=== PATIENT | female | born 1955 | race Caucasian/White ===

== ENCOUNTER 2021-09-17 12:26 | Outpatient (CLI) | payer OTHER, SELFPAY ==
--- NOTE | ~2021-09-17 | MR_ITS ---
EXAMINATION: MR orbits face neck wo/w con DATE: 09/17/2021 13:21 INDICATION: Clonic hemifacial spasm. Left facial twitching. TECHNIQUE: Magnetic resonance imaging (MRI) of the orbits was performed without and with 13 mL MultiH ance intravenous contrast. COMPARISON: None. FINDINGS: The extraocular muscles and optic nerves are normal. The optic chiasm is normal. There are likely changes of ocular lens replacement surgeries. There is mucosal thickening in the paranasal sin uses. There are trace mastoid effusions. IMPRESSION: 1. No etiology for the patient's symptoms. Reviewed, dictated and finalized at location A.
--- NOTE | ~2021-09-17 | MR_ITS ---
EXAMINATION: MR brain/brain stem wo/w con DATE: 09/17/2021 13:21 INDICATION: Clonic hemifacial spasm. TECHNIQUE: Magnetic resonance imaging (MRI) of the brain and brainstem was performed without and with 13 mL MultiHance intravenous contrast. COMPARISON: None. FINDINGS: There are scattered areas of nonspecific increased T2-weighted signal intensity in the cere bral white matter, which is within normal limits for the patient's age. There is no intracranial hemo rrhage, acute infarction, or abnormal intracranial mass lesion. The ventricles are normal in size. Th ere is mild mucosal thickening in the paranasal sinuses. There are likely changes of ocular lens repl acement surgeries. There are trace mastoid effusions. IMPRESSION: 1. Normal aging brain. Reviewed, dictated and finalized at location A. IMPRESSION: 1. Normal aging brain.
== END 2021-09-17 12:27 ==
LOC: MICIMG 12:27
PROVIDERS: PCP Nurse Practitioner Family; Visit Provider Specialist
DX: G51.39 Clonic hemifacial spasm, unspecified (principal); R53.83 Other fatigue
CPT/HCPCS: 70543; 70553; A9577

== ENCOUNTER 2021-10-31 17:55 | Emergency (ER) | payer OTHER, SELFPAY ==
--- NOTE | ~2021-10-31 | XR_ITS ---
EXAMINATION: XR chest 2V DATE: 10/31/2021 18:26 INDICATION: Cough. TECHNIQUE: Frontal and lateral views of the chest were obtained. COMPARISON: Chest 2 views 04/26/2014, CT abdomen and pelvis 10/10/2013 FINDINGS: There is stable mild scarring at the lung apices. There are airspace opacities in right mid dle lobe and lingula. No pleural effusion or pneumothorax. The heart size is normal. There are change s of anterior fusion procedure in cervical spine. IMPRESSION: 1. Airspace opacities in right middle lobe and lingula, consistent with atelectasis versus pneumonia. Reviewed, dictated and finalized at location A. IMPRESSION: 1. Airspace opacities in right middle lobe and lingula, consistent with atelect asis versus pneumonia.
[2021-10-31 18:10] VITALS: BP 160/94; PULSE 106; RESP 18; TEMP 37.4; O2SAT 97
--- NOTE | 2021-10-31 18:11 | ED.FEMALEGU ---
HPI - Female Genitourinary General Chief complaint: Urogenital-Female Stated complaint: uti complaint,chest congestion Time Seen by Provider: 10/31/21 18:15 History of Present Illness HPI Narrative: Karen Newton is a 66-year-old female who [facility] with complaints of dysuria and also fever and chest tightness, shortness of breath. started last night. She has no fever on checking in and can walk and continue talking full sentences. She is just returned from a 10-day vacation in [place] and she is feeling worn down so she thought initially that the reason she felt poorly was because of the traveling She did not take the COVID-vaccine. She also has not taken flu vaccine because she believes that she was hospitalized in for fever due to the flu vaccine and that the vaccine actually gave her the flu Related Data Allergies Allergy/AdvReac Type Severity Reaction Status Date / Time codeine Allergy Unknown N/V, Unverified 10/31/21 18:25 LORTAB OK meperidine Allergy Unknown CAUSED Unverified 10/31/21 18:25 RESP ARREST W/MOTHER,N/V SISTER aspirin AdvReac Nausea and Verified 10/31/21 18:25 Vomiting FLU SHOT Allergy temp of 105 Uncoded 10/31/21 18:25 Review of Systems Review of Systems: CONSTITUTIONAL: Denies fever, chills, sweats. EYES: Denies visual changes, redness, discharge. ENT: Denies rhinorrhea, congestion, sore throat, otalgia. Complains of occasional shortness of breath CARDIOVASCULAR: Denies chest pain, palpitations, edema. RESPIRATORY: Denies dyspnea, wheezing, cough GASTROINTESTINAL: Denies abdominal pain, nausea, vomiting, diarrhea. GENITOURINARY: Has dysuria , hematuria, abnormal discharge SKIN: Denies rash or itching. NEUROLOGIC: Denies numbness, or focal weakness. PSYCHIATRIC: Denies anxiety or depression. [facility] Past Medical History Medical History (Updated 10/31/21 @ 18:41 by Amparo Cook CNP) Constipation Migraine Social History Social History (Updated 10/31/21 @ 18:30 by Amparo Cook CNP) Smoking status: Never smoker Alcohol intake: current Comments At time of signature, I agree with nursing past medical, surgical, social and family history. There is no relevant family history pertinent to the presenting complaint. Exam Narrative: GENERAL: This is a well-nourished, well-developed patient, in mild distress. HEAD: normocephalic, atraumatic. EYES: Sclera clear/white. Vision is grossly intact. EARS: External ears normal, auditory canals clear and without drainage, TMs normal without perforation. Hearing grossly intact. NOSE: External nose normal without nasal discharge, nares without redness, no rhinorrhea. THROAT: Mucous membranes moist, posterior pharynx mild erythema NECK: Neck supple, non-tender CARDIOVASCULAR: Tachycardia rate and rhythm without murmurs, gallops, or rubs. RESPIRATORY: Mesh to auscultation on right. Breath sounds equal bilaterally. No wheezes, rales, or rhonchi. GASTROINTESTINAL: Not done SKIN: warm, intact with no suspicious lesions or rash, good texture and turgor. NEURO: awake, alert, and oriented to person, place and time. There were no obvious focal neurologic abnormalities. Steady gait EXTREMITIES: Normal range of motion. BACK: Nontender without deformity Course Course Emergency Course: Patient comes to [facility] with complaints of dysuria and shortness of breath when walking. She is just returned from a 10-day vacation and thought she was tired initially from that UA is negative for leukocytes, blood, or nitrates but she states she has difficulty starting stream and emptying bladder COVID test is negative Chest x-ray shows airspace opacities in the right middle lobe and lingula, this is normal there is stable mild scarring of the lung apices, changes of anterior fusion procedure and cervical spine Patient started on Zithromax, albuterol inhaler for pneumonia and for treating dysuria Level of Care: [facility]
== END 2021-10-31 18:50 | disposition home or self-care (01) ==
PROVIDERS: Emergency Provider Nurse Practitioner; PCP Nurse Practitioner Family
DX: R30.0 Dysuria (principal); J18.9 Pneumonia, unspecified organism; Z20.822 Contact with and (suspected) exposure to COVID-19
CPT/HCPCS: 71046; 81003; 87426; 99213; C9803; G0463

== ENCOUNTER 2022-01-12 11:18 | Emergency (ER) | payer OTHER, SELFPAY ==
[2022-01-12 12:15] VITALS: BP 129/84; PULSE 82; RESP 18; TEMP 36.4; O2SAT 98
[2022-01-12 12:16] VITALS: BP 129/84; PULSE 82; RESP 18; TEMP 36.4; O2SAT 98
--- NOTE | 2022-01-12 12:32 | ED.BACK ---
HPI - Back Pain/Injury General Chief Complaint: Back Pain/Injury Stated Complaint: back pain Time Seen by Provider: 01/12/22 12:20 Source: patient Mode of arrival: ambulatory Limitations: no limitations History of Present Illness HPI Narrative: Ms. Joy is a 66-year-old female patient presenting to clinic today with complaints of mid and low back pain times 2-3 days she reports she was playing with her grandkids over the holiday on the floor and may have strained her back. She reports pain to the mid back and it is radiating into her low back. She reports that she has some sharp pain with certain movements and spasming. She denies any numbness or tingling in her groin or loss of bowel or bladder. Related Data Allergies Allergy/AdvReac Type Severity Reaction Status Date / Time codeine Allergy Unknown N/V, Verified 01/12/22 12:15 LORTAB OK meperidine Allergy Unknown CAUSED Verified 01/12/22 12:15 RESP ARREST W/MOTHER,N/V SISTER aspirin AdvReac Nausea and Verified 01/12/22 12:15 Vomiting FLU SHOT Allergy temp of 105 Uncoded 01/12/22 12:15 Review of Systems Review of Systems: Pertinent positives per HPI. Patient denies any fever, chills, rash, headache, visual changes, dizziness, cough, runny nose, sore throat, shortness of breath, chest pain, palpitations, nausea, vomiting, diarrhea, constipation, abdominal pain, or any urinary issues. PMFSH Past Medical History Medical History Constipation Migraine Social History Social History Smoking status: Never smoker Alcohol intake: current Comments At the time of my signature, I reviewed and agree with the nursing past medical, surgical, social, and family history. There is no relevant family history pertinent to the patient complaint. Exam Narrative: General: Well-developed, well nourished, in no apparent distress Head: Normocephalic, atraumatic. Cardio: Regular rate and rhythm, s1 and s2 normal, no murmur appreciated. Resp: Clear to auscultation bilaterally, no rhonchi, rales, wheezing or rubs. Musculoskeletal: No deformity, non-tender to palpation, straight leg test positive at 60? bilaterally, grossly normal range of motion, patellar reflexes 1+ over 4, bilateral lower muscle strength strong and equal, peripheral pulse strong, no edema, no cyanosis, normal gait and station Course Course Emergency Course: Portions of this record may have been created with voice recognition software. Level of Care: Express Care Visit Vital Signs Vital signs: Vital Signs Temperature 36.4 C L 01/12/22 12:15 Pulse Rate 82 01/12/22 12:15 Respiratory Rate 18 01/12/22 12:15 Blood Pressure 129/84 01/12/22 12:15 Pulse Oximetry 98 01/12/22 12:15 Oxygen Delivery Room Air 01/12/22 12:15 Temperature 36.4 C L 01/12/22 12:16 Pulse Rate 82 01/12/22 12:16 Respiratory Rate 18 01/12/22 12:16 Blood Pressure 129/84 01/12/22 12:16 Pulse Oximetry 98 01/12/22 12:16 Oxygen Delivery Room Air 01/12/22 12:16 Vital signs reviewed MDM - Back Pain/Injury MDM Narrative Medical decision making narrative: at the time of the patient appears to be in quite a bit of pain. She rates her pain 8/10 currently. Toradol 60 mg IM given in the clinic today for pain as well as prescriptions for naproxen and Flexeril was sent to the pharmacy. I suspect patient has a mid and low back strain. Supportive measures were discussed with the patient she voiced understanding of discharge instructions and agrees to treatment plan Differential Diagnosis Differential diagnosis: Likely lumbar radiculopathy, sciatica, strain of lumbar region, thoracic back pain and discitis Discharge Plan Discharge Clinical Impression: Strain of thoracic back region, Strain of lumbar region Patient Disposition: Home, Self-Care Co
[2022-01-12] MEDS: KETOROLAC (*BKC) 60 MG/2 ML VIAL IM (12:40)
== END 2022-01-12 12:50 | disposition home or self-care (01) ==
PROVIDERS: Emergency Provider Nurse Practitioner Family; PCP Nurse Practitioner Family
DX: S29.012A Strain of muscle and tendon of back wall of thorax, initial encounter (principal); S39.012A Strain of muscle, fascia and tendon of lower back, initial encounter; X50.0XXA Overexertion from strenuous movement or load, initial encounter
CPT/HCPCS: 96372; 99213; G0463; J1885

== ENCOUNTER → 2022-01-15 12:22 | Outpatient (CLI) | payer OTHER, SELFPAY ==
--- NOTE | ~2022-01-15 | XR_ITS ---
XR lumbar spine 2-3V DATE: 01/15/2022 12:43 INDICATION: Low back pain TECHNIQUE: AP, lateral, coned lateral lumbosacral views COMPARISON: 10/10/2013 MRI lumbar spine FINDINGS: There is minimal levoscoliosis of the lumbar spine. Mild to moderate degenerative disc disease at L1-2, mild degenerative disc disease at L2-3, L3-4 and L4-5. No fracture or bone destruction or spondylolisthesis is evident. The lumbar and included lower thorac ic pedicles are intact. The sacroiliac joints are intact. IMPRESSION: Mild to moderate degenerative disc disease Minimal lumbar levoscoliosis Reviewed, dictated and finalized at location B. ARCH DEVELOPMENT MANAGER
--- NOTE | ~2022-01-15 | XR_ITS ---
XR thoracic spine 3V DATE: 01/15/2022 12:43 INDICATION: Thoracic back pain, lumbar back pain. TECHNIQUE: AP, lateral, swimmer views COMPARISON: None FINDINGS: Status post anterior and interbody surgical fusion at at C4-C6. There is minimal dextroscoliosis of the thoracolumbar spine. The thoracic pedicles are intact. There is degenerative change including prominent degenerative disc disease and spurring at T7-8 and m oderate degenerative t disc disease at T8-9. No fracture or dislocation or bone destruction. No paraspinal soft tissue thickening. IMPRESSION: Status post anterior surgical fusion at C4-C6 Minimal thoracolumbar dextroscoliosis Degenerative changes, greatest at T7-8 and T8-9 Reviewed, dictated and finalized at location B. H PRESS FEEDER
== END ==
PROVIDERS: PCP Nurse Practitioner Family; Visit Provider Nurse Practitioner Family
DX: M54.50 Low back pain, unspecified (principal); M51.36 Other intervertebral disc degeneration, lumbar region; M41.86 Other forms of scoliosis, lumbar region; Z98.1 Arthrodesis status; M41.85 Other forms of scoliosis, thoracolumbar region
CPT/HCPCS: 72072; 72100

== ENCOUNTER 2022-03-17 08:00 | Outpatient (RCR) | payer OTHER, SELFPAY ==
--- NOTE | 2022-02-11 14:41 | PTOPEVAL1 ---
Assessment and note entered by Maria Elena Caballero, PT Evaluation Information Assessment Status Evaluation Diagnosis thoracic and lumbar pain Onset Jan 09, 2022 Subjective Information twisted back, when playing with grandchildren-- picking them up and twisted back; next day, could not hardly walk; pain has improved, but still there; has moved from mid back, to R lower back and into R side of hip; is not able to lift anything- guarded and protect her back, walk differently; problems moving R leg; up to a year ago, was working out for fitness, now taking care of my dad and not working out; Reported Pain Level Pain Score Self Report Additional Pain Score Comments thoracic and lumbar spine-R lower lumbar, radicular into lateral R hip; pain range of 3-10/ 10; self assessment functional score of 48% limitation; some tingling and numbness over R sacrum, tightness; increase pain with sitting 30-45 min; lifting, quick turns; walking/standing 30-40 min; decrease pain with biofreeze, massage blanket with heat; awaken with back pain during sleep 4-5x/ night; stated multiple times--do not want to move wrong and hurt back more; something is wrong with my back; Assessment PT Clinical Summary Karen has the diagnosis of thoracic & lumbar pain. She reports onset after playing with her grandkids, lifting them. Pain started in her mid and low back, now lower into her R side and around to R hip. Sitting, walking, sleeping and activity level is decreased due to pain. Self assessment Oswestry score of 48% limitation in activity level. Her job is sitting and office work. With the evaluation, she has poor standing position of her trunk and back--wt shifted to L LE R trunk and shoulder forward rotation and R hip elevated. With movement testing-she is very guarded with movement of her trunk and hips, pain is increased with most motions. There are spasms and tenderness over entire thoracic-lumbar area, with R lumbar the most painful. Skilled PT services are indicated for modalities to decrease pain and spasms, therapeutic exercises to increase flexibilit
--- NOTE | 2022-03-17 08:34 | PTOPDC ---
Assessment and note entered by Maria Elena Caballero, PT Evaluation Information Assessment Status Discharge Diagnosis thoracic and lumbar pain Onset Jan 09, 2022 Subjective Information Karen reports: back is better, still tight but not pain; doing exercises at home without any problems; ready to finish up with therapy; going to try to get a massage every week from my friend; tolerances: sitting is not limited; walking/ standing without limit due to pain; sleeping without awakening due to pain; no pain in R hip, but tight sometimes; Reported Pain Level Pain Score Self Report Additional Pain Score Comments no pain but tightness in back; back to her usual routine and no limitations; is careful with lifting and moving to not hurt her back again; reinforced heat, stretching as ways to manage her back tightness--she understands; Assessment PT Clinical Summary Ms. Newton has received 4 PT sessions. Compared to the initial evaluation--she has improved in all areas: Self assessment Oswestry score is 0% limitation in activity; walking, standing, sitting tolerances are not limited due to pain; does not have any pain with standing trunk or supine hip motions; increased trunk and hip strength; Education has been completed for HEP and body mechanics with position and lifting activity. The goals were achieved. Discharge PT services. Plan of Care PT Services Indicated No
== END 2022-04-29 09:28 | disposition home or self-care (01) ==
LOC: ANHPT 08:00
PROVIDERS: PCP Nurse Practitioner Family; Visit Provider Nurse Practitioner Family
DX: M54.6 Pain in thoracic spine (principal); M54.50 Low back pain, unspecified
CPT/HCPCS: 97110; 97140; 97161; 97530

== ENCOUNTER 2023-01-22 00:26 | Day surgery (SDC) | payer OTHER, SELFPAY ==
[2023-01-06 12:21] VITALS: BMI 25.0
--- NOTE | 2023-01-20 09:53 | SUR.PREOP ---
Patient called regarding upcoming procedure. Reviewed preop instructions, appointment times, and procedure prep.
--- NOTE | 2023-01-21 17:52 | PM.HPGS ---
History of Present Illness History of Present Illness Consent: Risks, benefits, and alternatives have been discussed and questions answered. Patient agrees to proceed with procedure. Chief complaint: neoplasm screening Narrative: Geena Newton is a 67 year old female referred for colon cancer screening. 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 Colon cancer screening Constipation Elevated fasting glucose Encounter to establish care Hyperlipidemia Lumbar back pain Migraine Postmenopausal Screening for osteoporosis Spasm Thoracic back pain Tobacco abuse Surgical History Surgical History Hx of cataract surgery Hx of neck surgery Family History Family History Father Patient's father is in good health Mother Family history of malignant neoplasm Patient's mother is , Onset Age: 64 Social History Social History Smoking status: Current every day smoker Tobacco type: cigarettes Alcohol intake: current Drinks per week: 2 Alcohol use details: occasionally Substance use: never Substance use type: does not use Lack of Transportation: No Lack of Food: Never True Current Housing: I Have Housing Concerned About Future Housing: No Difficulty Paying Gas/Electric Bills: No Difficulty Paying for Meds: No Currently Unemployed: No Education: High School Diploma/GED Difficulty w/ Childcare or Family Care: No Living arrangements: alone Spiritual care concerns: No Meds Home Medications and Allergies Home Medications Medication Instructions Recorded Confirmed Type multivitamin 1 tablet PO DAILY 10/12/22 01/22/23 History Allergies Allergy/AdvReac Type Severity Reaction Status Date / Time codeine Allergy Unknown N/V, Verified 01/22/23 10:31 LORTAB OK meperidine Allergy Unknown CAUSED Verified 01/22/23 10:31 RESP ARREST W/MOTHER,N/V SISTER FLU SHOT Allergy temp of 105 Uncoded 01/22/23 10:31 Exam Const: General: alert Orientation/consciousness: patient oriented x3 Resp: Auscultation: clear to auscultation bilaterally Cardio: Rate: regular rate Rhythm: regular rhythm GI: GI Palp: Yes Soft to palpation and No Tenderness to palpation present (GI) Neuro: General: patient oriented x3 Assessment and Plan Assessment and plan (1) Colon cancer screening: Code(s): Z12.11 - Encounter for screening for malignant neoplasm of colon Status: Acute Assessment and Plan: Colonoscopy with possible biopsy or polypectomy or cautery or injection of substances.
[2023-01-22 10:33] VITALS: BP 145/88; PULSE 80; RESP 16; TEMP 36.1; O2SAT 98
[2023-01-22] MEDS: LACTATED RINGERS 1,000 ML 150 ML IV CONT (10:46)
--- NOTE | 2023-01-22 11:04 | WPDANESEPPF ---
Anes - Initial Pre Proc Eval Procedure: Operation Date: 01/22/23 11:30 Proposed Procedures p Screening Colonoscopy - Abran Ernandez MD Date/Time: 01/22/23 11:04 Surgeon: Abran Ernandez MD Pre Op Diagnosis: neoplasm screening Patient Data Age: 67 Gender: F Height: 1.63 m Weight: 65.8 kg Last Vital Signs Temp 96.9 F L 01/22/23 10:33 Pulse 80 01/22/23 10:33 Resp 16 01/22/23 10:33 BP 145/88 H 01/22/23 10:33 Pulse Ox 98 01/22/23 10:33 O2 Del Method Room Air 01/22/23 10:33 Allergies Allergy/AdvReac Type Severity Reaction Status Date / Time codeine Allergy Unknown N/V, Verified 01/22/23 10:31 LORTAB OK meperidine Allergy Unknown CAUSED Verified 01/22/23 10:31 RESP ARREST W/MOTHER,N/V SISTER FLU SHOT Allergy temp of 105 Uncoded 01/22/23 10:31 Home Medications Medication Instructions Recorded Confirmed Type multivitamin 1 tablet PO DAILY 10/12/22 01/22/23 History Patient hx anesthesia problems: none Family hx anesthesia problems: none Results Review: All pre-operative results and documents have been reviewed as part of the pre-operative evaluation. 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 Colon cancer screening Constipation Elevated fasting glucose Encounter to establish care Hyperlipidemia Lumbar back pain Migraine Postmenopausal Screening for osteoporosis Spasm Thoracic back pain Tobacco abuse Surgical History Surgical History Hx of cataract surgery Hx of neck surgery Family History Family History Father Patient's father is in good health Mother Family history of malignant neoplasm Patient's mother is , Onset Age: 64 Social History Social History Smoking status: Current every day smoker Tobacco type: cigarettes Alcohol intake: current Drinks per week: 2 Alcohol use details: occasionally Substance use: never Substance use type: does not use Lack of Transportation: No Lack of Food: Never True Current Housing: I Have Housing Concerned About Future Housing: No Difficulty Paying Gas/Electric Bills: No Difficulty Paying for Meds: No Currently Unemployed: No Education: High School Diploma/GED Difficulty w/ Childcare or Family Care: No Living arrangements: alone Spiritual care concerns: No Anes - Eval Final PreProcedure Day of Procedure 01/22/23 11:04 Patient weight: normal Heart: regular rate and rhythm Lungs: clear to auscultation Airway: Mallampati scale class II Neurological: alert and oriented Last oral intake: >/= 8 hours ASA classification: II Emergent: no Anesthetic plan: proceed Anesthesia type and monitoring: general GIVS and standard monitoring Results Review: All pre-operative results and documents have been reviewed as part of the pre-operative evaluation. Informed Consent: The patient's anesthetic plan and its attendant risks and benefits were discussed with the patient/family/POA. Questions were solicited and answers provided to the satisfaction of the patient/family/POA.
[2023-01-22] MEDS: SIMETHICONE ORAL SUSPENSION 20 MG/0.3 ML 30 ML BOTTLE 0.6 ML IRRIGATION (11:15)
[2023-01-22 11:21] VITALS: BP 107/67; PULSE 85; RESP 18; O2SAT 98
[2023-01-22 11:31] VITALS: BP 118/87; PULSE 80; RESP 17; O2SAT 97
[2023-01-22 11:41] VITALS: BP 131/92; PULSE 84; RESP 21; O2SAT 98
== END 2023-01-22 11:45 | disposition home or self-care (01) ==
PROVIDERS: PCP Nurse Practitioner Family; Visit Provider Internal Medicine Gastroenterology
PROC: 0DJD8ZZ Inspection of Lower Intestinal Tract, Via Natural or Artificial Opening Endoscopic (ICD-10-PCS; CPT 45378; principal; 2023-01-22 11:30)
DX: Z12.11 Encounter for screening for malignant neoplasm of colon (principal); D12.5 Benign neoplasm of sigmoid colon; K64.8 Other hemorrhoids; F17.210 Nicotine dependence, cigarettes, uncomplicated
CPT/HCPCS: 45385; 88305; J2704; J7120

== ENCOUNTER 2023-04-08 12:08 | Emergency (ER) | payer OTHER, SELFPAY ==
[2023-04-08 12:23] VITALS: BP 140/75; PULSE 76; RESP 18; TEMP 36.6; O2SAT 97
--- NOTE | 2023-04-08 12:23 | ED.BACK ---
HPI - Back Pain/Injury General Chief Complaint: Urogenital-Female Stated Complaint: back pain Time Seen by Provider: 04/08/23 12:23 Source: patient Mode of arrival: ambulatory Limitations: no limitations History of Present Illness HPI Narrative: Patient is a 68-year-old female that presents with low back pain that started Wednesday after vacuuming but has increasingly worsened since. Patient reports today she is having increased numbness to buttocks/rectal area and tingling sensation in extremities. Denies any loss of bowel or bladder. Is still able to ambulate unassisted. Does have history of lumbar strain and sciatica but states this feels differently. Patient has taken Aleve today with no relief of symptoms. Denies any fever, chills, n/v/d. Related Data Home Medications Medication Instructions Recorded Confirmed multivitamin 1 tablet PO DAILY 10/12/22 04/08/23 Allergies Allergy/AdvReac Type Severity Reaction Status Date / Time codeine Allergy Unknown N/V, Verified 04/08/23 12:40 LORTAB OK meperidine Allergy Unknown CAUSED Verified 04/08/23 12:40 RESP ARREST W/MOTHER,N/V SISTER FLU SHOT Allergy temp of 105 Uncoded 04/08/23 12:40 Review of Systems Review of Systems: All systems reviewed & are unremarkable except as noted in HPI and below Constitutional: Constitutional: Denies body ache(s), Denies chills, Denies fatigue, Denies fever(s), Denies headache(s), Denies malaise and Denies weakness Eyes: Eyes: Denies blurry vision, Denies irritation and Denies loss of vision ENT: Denies otalgia, Denies headache(s), Denies nasal discharge, Denies sinus pain and Denies sore throat Cardiovascular: Cardiovascular: Denies chest pain, Denies irregular heart rhythm and Denies dyspnea Respiratory: Respiratory: Denies dyspnea Gastrointestinal: Gastrointestinal: Denies abdominal pain, Denies melena, Denies hematochezia, Denies diarrhea, Denies nausea and Denies vomiting Musculoskeletal: Musculoskeletal: Reports back pain, Denies myalgias, Denies arthralgias, Reports numbness and Reports tingling Integumentary/Breasts: Skin/Breast: Denies pruritus and Denies rash Neurologic: Denies headache(s), Denies loss of vision and Denies weakness Psychiatric: Psychiatric: Reports no additional psychiatric complaints Endocrine: Endocrine: Denies fatigue [facility] Past Medical History Medical History B12 deficiency BMI 22.0-22.9, adult Breast cancer screening Cervicalgia 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 Colon cancer screening Constipation Elevated fasting glucose Encounter to establish care Hyperlipidemia Lumbar back pain Migraine Postmenopausal Screening for osteoporosis Spasm Thoracic back pain Tobacco abuse Surgical History Surgical History Hx of cataract surgery Hx of neck surgery Family History Family History Father Patient's father is in good health Mother Family history of malignant neoplasm Patient's mother is , Onset Age: 64 Social History Social History Smoking status: Current every day smoker Tobacco type: cigarettes Alcohol intake: current Drinks per week: 2 Alcohol use details: occasionally Substance use: never Substance use type: does not use Lack of Transportation: No Lack of Food: Never True Current Housing: I Have Housing Concerned About Future Housing: No Difficulty Paying Gas/Electric Bills: No Difficulty Paying for Meds: No Currently Unemployed: No Education: High School Diploma/GED Difficulty w/ Childcare or Family Care: No Living arrangements: alone Spiritual care concerns: No Comments At time of signature, agree with nursing past medical, surgical, social and family history. T
== END 2023-04-08 12:45 | disposition short-term general hospital (02) ==
PROVIDERS: Emergency Provider Nurse Practitioner Family; PCP Nurse Practitioner Family
DX: M54.50 Low back pain, unspecified (principal); R20.0 Anesthesia of skin; E78.5 Hyperlipidemia, unspecified; F17.210 Nicotine dependence, cigarettes, uncomplicated
CPT/HCPCS: 99212; G0463

== ENCOUNTER 2023-04-08 13:09 | Emergency (ER) | payer OTHER, SELFPAY ==
--- NOTE | ~2023-04-08 | CT_ITS ---
EXAMINATION: CT lumbar spine wo con DATE: 04/08/2023 14:35 INDICATION: Lower back pain TECHNIQUE: Computed tomography (CT) of the lumbar spine was performed without intravenous contrast. A utomated exposure control and iterative reconstruction technique were employed. The dose-length produ ct was 297.81 mGy-cm. COMPARISON: Lumbar spine radiographs dated 01/15/2022 FINDINGS: 7 degrees lumbar levocurvature. Sagittal alignment is normal. Vertebral body heights are normal. No f ractures. There are Schmorl's nodes at both sides of the T11-T12 through L1-L2 disc spaces. There is mild disc height loss at T11-T12, L1-L2 and L4-L5. Paravertebral soft tissues are unremarkable. The f ollowing disc levels are specifically discussed: T11-T12: Disc is mildly bulging. There is mild right and minimal left facet joint osteoarthritis. The re is no neural foraminal stenosis. There is mild central canal stenosis. T12-L1: Very small central disc protrusion. There is mild bilateral facet joint osteoarthritis. There is no neural foraminal stenosis. There is no central canal stenosis. L1-L2: Disc is minimally bulging. There is mild bilateral facet joint osteoarthritis. There is no pola ral foraminal stenosis. There is no central canal stenosis. L2-L3: Disc is bulging. There is mild bilateral facet joint osteoarthritis. There is mild bilateral n eural foraminal stenosis. There is mild central canal stenosis. L3-L4: Disc is bulging. There is mild bilateral facet joint osteoarthritis. There is mild bilateral n eural foraminal stenosis. There is mild central canal stenosis. L4-L5: Disc is bulging. There is mild right and mild to moderate left facet joint osteoarthritis. The re is mild right and mild to moderate left neural foraminal stenosis. There is mild central canal stefano nosis. L5-S1: Disc is bulging. There is mild bilateral facet joint osteoarthritis. There is mild left and mi nimal right neural foraminal stenosis. There is minimal central canal stenosis. IMPRESSION: 1. 7 degrees lumbar levocurvature with mild lumbar and lower thoracic spondylosis. Reviewed, dictated and finalized at location A. [facility] IMPRESSION: 1. 7 degrees lumbar levocurvature with mild lumbar and lower thoracic spondylos is.
[2023-04-08 13:12] VITALS: BP 142/119; PULSE 72; RESP 20; TEMP 36.2; O2SAT 99
--- NOTE | 2023-04-08 14:15 | ED.BACK ---
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 Patient denies bowel dysfunction, bladder dysfunction, altered sensation, focal weakness, or saddle numbness, patient drove herself to the emergency room Patient had history of lower back pain, chronic, had physical therapy January 2023. Related Data Home Medications Medication Instructions Recorded Confirmed multivitamin 1 tablet PO DAILY 10/12/22 04/08/23 Allergies Allergy/AdvReac Type Severity Reaction Status Date / Time codeine Allergy Unknown N/V, Verified 04/08/23 12:40 LORTAB OK meperidine Allergy Unknown CAUSED Verified 04/08/23 12:40 RESP ARREST W/MOTHER,N/V SISTER FLU SHOT Allergy temp of 105 Uncoded 04/08/23 12:40 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 Colon cancer screening Constipation Elevated fasting glucose Encounter to establish care Hyperlipidemia Lumbar back pain Migraine Postmenopausal Screening for osteoporosis Spasm Thoracic back pain Tobacco abuse Surgical History Surgical History Hx of cataract surgery Hx of neck surgery Family History Family History Father Patient's father is in good health Mother Family history of malignant neoplasm Patient's mother is , Onset Age: 64 Social History Social History Smoking status: Current every day smoker Tobacco type: cigarettes Alcohol intake: current Drinks per week: 2 Alcohol use details: occasionally Substance use: never Substance use type: does not use Lack of Transportation: No Lack of Food: Never True Current Housing: I Have Housing Concerned About Future Housing: No Difficulty Paying Gas/Electric Bills: No Difficulty Paying for Meds: No Currently Unemployed: No Education: High School Diploma/GED Difficulty w/ Childcare or Family Care: No Living arrangements: alone Spiritual care concerns: No Exam Narrative: General appearance: Well-developed, well-nourished Skin: Normal color Head: Normocephalic, nontraumatic Eyes: Clear conjunctiva ENT: Oropharynx normal, ears normal, nose normal Neck: Supple, nontender Chest and respiratory: Airway patent, no respiratory distress, no accessory muscle use Heart: Regular rate/rhythm Abdomen: Soft, nontender, no organomegaly, quiet bowel sounds Vascular: Normal peripheral pulses, normal capillary refill. Musculoskeletal: Diffuse tenderness spinous and paraspinous muscle and across lumbar area no bruises, no swelling or rash. Neurologic: Alert and oriented ?3, [employer] is normal as tested, no gross motor deficit, negative leg straight raising test bilaterally Course Vital Signs Vital signs: Vital Signs Temperature 36.2 C L 04/08/23 13:12 Pulse Rate 72 04/08/23 13:12 Respiratory Rate 20 04/08/23 13:12 Blood Pressure 142/119 H 04/08/23 13:12 Pulse Oximetry 99 04/08/23 13:12 Oxy
[2023-04-08] MEDS: KETOROLAC (*BKC) 60 MG/2 ML VIAL IM (14:42)
[2023-04-08 15:42] VITALS: BP 132/89; PULSE 76; RESP 15; O2SAT 100
== END 2023-04-08 15:43 | disposition home or self-care (01) ==
PROVIDERS: Emergency Provider Emergency Medicine; PCP Nurse Practitioner Family
DX: S39.012A Strain of muscle, fascia and tendon of lower back, initial encounter (principal); E53.8 Deficiency of other specified B group vitamins; E78.5 Hyperlipidemia, unspecified; F17.210 Nicotine dependence, cigarettes, uncomplicated; Z98.49 Cataract extraction status, unspecified eye; X50.9XXA Other and unspecified overexertion or strenuous movements or postures, initial encounter; Y93.E9 Activity, other interior property and clothing maintenance
CPT/HCPCS: 72131; 96372; 99284; J1885

== ENCOUNTER 2023-07-26 00:28 | Day surgery (SDC) | payer OTHER, SELFPAY ==
--- NOTE | 2023-07-16 15:26 | PC.NURSE ---
Report to the Outpatient Waiting Room, entrance under the green pavilion located off [facility], at time _1000 on date _07/26/23 . Planned Procedure Time: __1200 . Time changes happen often and if your time is changed the preop area will call you the afternoon before. - You and your visitor will be asked to self-screen and do not enter if you have any COVID symptoms. - A mask is optional within the hospital at this time. REGULAR DIET DAY PRIOR TO SURGERY-NOTHING TO EAT OR DRINK AFTER MIDNIGHT BOWEL PREP PER DR PATINO Take the following medications with a SIP of water the morning of surgery: ____NONE DO NOT STOP ANY OF YOUR OTHER PRESCRIPTION MEDICATIONS PRIOR TO SURGERY ?EXCEPT THE FOLLOWING Medications to discontinue per physician ALL VITAMINS 3 DAYS PRE OP .LAST DOSE 07/22/23 Please no make-up, nail namibian, hairspray, perfume, deodorant, or body powder the day of surgery. No jewelry (including any body piercings) or valuables the day of surgery, leave them at home. Please take a shower or bath the night before, or the morning of, surgery with an antibacterial soap. Wear comfortable, loose fitting clothing. Children are encouraged to wear pajamas. - Jewelry must be removed prior to entering the operating room. Rings and piercings that are not removed may be cut off. - The hospital will not accept responsibility for valuables. - Please leave all valuables, including medications, at home the day of surgery. If you are going home after surgery, a licensed front loader residential driver must drive you home. - NO public transportation without another adult if you receive anesthesia. - We recommend that an adult stay with you for 24 hours following discharge. - We also recommend that you do not drive, make important decision, drink alcoholic beverages, or take any drugs that were not prescribed by your health care provider for at least 24 hours after your discharge time. Follow any additional instructions given to you from your surgeon. If you or anyone in your household have experienced Covid symptoms in the past week, please notify your surgeon or the nurse liaison at the phone number below for possible testing. Telephone instructions given to ____PATIENT and asked if any additional questions and then verbalized understanding. Patient advised to call surgeon office or pre surgery nurse liaison [phone] if any additional questions.
[2023-07-16 15:36] VITALS: BMI 24.0
[2023-07-26] VITALS (8 sets, daily range): BP systolic 104–147; BP diastolic 59–102; PULSE 69–90; RESP 10–20; TEMP 36.1–36.2; O2SAT 95–100
[2023-07-26] MEDS: ACETAMINOPHEN 500 MG TABLET 1000 MG PO (10:45)
[2023-07-26] MEDS: LACTATED RINGERS 1,000 ML 30 ML IV CONT (10:45)
[2023-07-26] MEDS: KETOROLAC 15 MG/ML VIAL (*BKC) IV PUSH ×2 (10:45→13:08)
--- NOTE | 2023-07-26 11:47 | WPDANESEPPF ---
Anes - Initial Pre Proc Eval Procedure: Operation Date: 07/26/23 12:00 Proposed Procedures p Anorectal Examination Under Anesthesia, Excisional Hemorrhoidectomy - Orestes Mcclain MD Date/Time: 07/26/23 11:47 Surgeon: Orestes Mcclain MD Pre Op Diagnosis: Grade III Internal Hemorrhoids Patient Data Age: 68 Gender: F Height: 1.63 m Weight: 63.5 kg Last Vital Signs Temp 97.2 F L 07/26/23 10:03 Pulse 69 07/26/23 10:03 Resp 14 07/26/23 10:03 BP 123/59 L 07/26/23 10:03 Pulse Ox 99 07/26/23 10:03 O2 Del Method Room Air 07/26/23 10:03 Allergies Allergy/AdvReac Type Severity Reaction Status Date / Time codeine Allergy Unknown N/V, Verified 07/26/23 11:05 LORTAB OK meperidine Allergy Unknown CAUSED Verified 07/26/23 11:05 RESP ARREST W/MOTHER,N/V SISTER FLU SHOT Allergy temp of 105 Uncoded 07/26/23 11:05 Home Medications Medication Instructions Recorded Confirmed Type multivitamin 1 tablet PO DAILY 10/12/22 07/16/23 History Patient hx anesthesia problems: none Family hx anesthesia problems: none Results Review: All pre-operative results and documents have been reviewed as part of the pre-operative evaluation. 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 Colon cancer screening Constipation Elevated fasting glucose Encounter to establish care Hyperlipidemia Internal hemorrhoids Lumbar back pain Migraine Postmenopausal Screening for osteoporosis Spasm Thoracic back pain Tobacco abuse Surgical History Surgical History H/O: hysterectomy History of appendectomy Hx of cataract surgery Hx of neck surgery Family History Family History Father Patient's father is in good health Mother Family history of malignant neoplasm Patient's mother is , Onset Age: 64 Social History Social History Years smoked: 30 Smoking status: Current every day smoker Tobacco type: cigarettes Alcohol intake: current Drinks per week: 1 Alcohol use details: occasionally Substance use: never Substance use type: does not use Lack of Transportation: No Lack of Food: Never True Current Housing: I Have Housing Concerned About Future Housing: No Difficulty Paying Gas/Electric Bills: No Difficulty Paying for Meds: No Currently Unemployed: No Education: High School Diploma/GED Difficulty w/ Childcare or Family Care: No Living arrangements: alone Spiritual care concerns: No Anes - Eval Final PreProcedure Day of Procedure 07/26/23 11:47 Patient weight: overweight Heart: regular rate and rhythm Lungs: clear to auscultation Airway: Mallampati scale class II Neurological: alert and oriented Last oral intake: >/= 8 hours ASA classification: II Emergent: no Anesthetic plan: proceed Anesthesia type and monitoring: general ETT and standard monitoring Results Review: All pre-operative results and documents have been reviewed as part of the pre-operative evaluation. Pt smokes occ, socially, seems to be several days/week. 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 Informed Consent: The patient's anesthetic plan and its attendant risks and benefits were discussed with the patient/family/POA. Questions were solicited and answers provided to the satisfaction of the patient/family/POA.
--- NOTE | 2023-07-26 12:04 | PM.IMHP ---
H&P: HPI History of Present Illness Date/Time: 07/26/23 12:04 Chief Complaint: Symptomatic hemorrhoids. Narrative: Ms. Newton presents to the office at the request of Dr. Ernandez for evaluation of symptomatic hemorrhoids. Has a approximately 2-3 month history of rectal pain and drainage. Notices blood on the toilet paper after BMs. Has increased pain with prolonged sitting. She states it feels like she's sitting on marbles. No history of constipation or change in bowel habits, and admits to having a BM every morning. First colonoscopy was 8 or 9 years ago, which she recalls was negative for polyps. Recent colonoscopy by Dr. Ernandez in 01/2023 showed a polyp in the sigmoid colon and internal hemorrhoids. Biopsy of the polyp was taken showed pathology confirmed it to be a tubular adenoma. Review of Systems Review of Systems: The remainder of the review of systems to include constitutional, HEENT, cardiovascular, respiratory, GI, , integumentary, musculoskeletal, endocrine, immunologic, hematologic, psychiatric, and neurologic are all negative except for which is mentioned above in the HPI. 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 Colon cancer screening Constipation Elevated fasting glucose Encounter to establish care Hyperlipidemia Internal hemorrhoids Lumbar back pain Migraine Postmenopausal Screening for osteoporosis Spasm Thoracic back pain Tobacco abuse Surgical History Surgical History H/O: hysterectomy History of appendectomy Hx of cataract surgery Hx of neck surgery Family History Family History Father Patient's father is in good health Mother Family history of malignant neoplasm Patient's mother is , Onset Age: 64 Social History Social History Years smoked: 30 Smoking status: Current every day smoker Tobacco type: cigarettes Alcohol intake: current Drinks per week: 1 Alcohol use details: occasionally Substance use: never Substance use type: does not use Lack of Transportation: No Lack of Food: Never True Current Housing: I Have Housing Concerned About Future Housing: No Difficulty Paying Gas/Electric Bills: No Difficulty Paying for Meds: No Currently Unemployed: No Education: High School Diploma/GED Difficulty w/ Childcare or Family Care: No Living arrangements: alone Spiritual care concerns: No Meds Home Medications and Allergies Home Medications Medication Instructions Recorded Confirmed Type multivitamin 1 tablet PO DAILY 10/12/22 07/16/23 History Allergies Allergy/AdvReac Type Severity Reaction Status Date / Time codeine Allergy Unknown N/V, Verified 07/26/23 11:05 LORTAB OK meperidine Allergy Unknown CAUSED Verified 07/26/23 11:05 RESP ARREST W/MOTHER,N/V SISTER FLU SHOT Allergy temp of 105 Uncoded 07/26/23 11:05 Vital Signs Vital Signs - 24 hr 07/26/23 10:03 Temperature 36.2 C L Pulse Rate 69 Respiratory Rate 14 Blood Pressure 123/59 L Pulse Oximetry 99 Oxygen Delivery Room Air Exam Const: General: comfortable and no acute distress HENMT: Face/Nose/Sinus: Normal nares present Mouth: Yes moist mucous membranes Eyes: General: appearance normal, both eyes and all related structures Sclera: sclerae normal Pupils: Equal, round and reactive pupils present EOM: EOMs intact bilaterally Neck: Neck: supple and no JVD Resp: Effort & Inspection: normal respiratory effort Auscultation: clear to auscultation bilaterally Cardio: Rate: regular rate Rhythm: regular rhythm GI: GI Palp: Yes Soft to palpation, No Firmness to palpation present (
--- NOTE | 2023-07-26 12:09 | WPDHPUPDATE1 ---
History and Physical Update Update Date/Time: 07/26/23 12:09 History and Physical has been reviewed, including an updated exam of the patient. There are NO changes in the patient's condition. Risks, benefits, and alternatives have been discussed and questions answered. Patient agrees to proceed with procedure.
[2023-07-26] MEDS: ceFAZolin 2 GM/D5W 50 ML 2 GM/50 ML BAG IVPB (12:16)
[2023-07-26] MEDS: BUPivacaine HCL 0.5% PF 30 ML VIAL 20 ML INFILTRATE (12:48)
[2023-07-26] MEDS: LIDO 1%/EPINEPHRINE 1:100,000 20 ML VIAL INFILTRATE (12:49)
[2023-07-26] MEDS: LIDOCAINE HCL 2% GEL UROJET 10 ML PKG MUCOUS MEM (13:11)
--- NOTE | 2023-07-26 13:47 | SUR.PHASEI ---
Simple mask removed at 1349
--- NOTE | 2023-07-26 19:55 | W.PM.PROC2 ---
Procedure Note - Detailed Date of Procedure 07/26/23 Pre-op Diagnosis Grade III Internal Hemorrhoids Post-op Diagnosis Same Procedure Performed Excisional hemorrhoidectomy x1 with banding of internal hemorrhoids x2. Surgeon Orestes Mcclain MD Anesthesia General Indications Patient is a 68-year-old female who has a large protruding grade 3 internal hemorrhoids in the right lateral side at the 4 o'clock position with the patient prone. She complains of having pain some bleeding from her hemorrhoids. She presents now for an excisional hemorrhoidectomy. Findings Patient had large grade 3 non ulcerated nonthrombosed hemorrhoid at the 4 o'clock position the right anterior side with the patient prone. She had 2 smaller internal hemorrhoids which were grade 2 at the left lateral side at the 7 o'clock and 10 o'clock positions. Description of Procedure After informed consent was obtained patient brought to the operating room where she was placed supine position on the gurney then turned in the prone hussein-knife position on operating table. The buttocks were then taped apart to expose the anal opening. There is then prepped and draped usual sterile fashion. A time-out was then performed correctly identifying the patient as well as procedure to be performed. I then proceeded to dilate the anal sphincters with a lubricated anal speculum. Once this was done I could easily see there was a very large non ulcerated and nonthrombosed internal hemorrhoid at the 4 o'clock position the right anterior side with the patient prone. There is also 2 smaller grade 2 internal hemorrhoids at the 7 o'clock and 10 o'clock positions on the left lateral side. First started excising the biggest hemorrhoid at the 4 o'clock position. An Allis clamp was placed at the apex of the hemorrhoid and then 1% lidocaine mixed with 0.5% Marcaine was injected underneath the hemorrhoid tissue but superficial to the internal sphincter muscles. I then placed 2-0 chromic suture at the apex of the hemorrhoid and incised the tissue on either side hemorrhoid a raegan configuration extending it out onto the perianal skin. I then utilized electrocautery to dissect in the incision until I reached the anal sphincters. Then I used Metzenbaum scissors to spread superficial to the internal anal sphincter muscle fibers and then completely excised out the hemorrhoidal tissue utilizing electrocautery. Great care was taken to make sure that no internal sphincter muscle was damaged. The hemorrhoid was then labeled as internal hemorrhoid 6 o'clock position. It was sent to pathology for examination. I then ran the 2-0 chromic suture placed previously in a locking fashion out to the anal verge. At this point I transition using a 3-0 Vicryl suture placed in a locking fashion to completely close the perianal skin portion of the incision. I then approached management of the 2 smaller 2nd degree internal hemorrhoids in the left lateral side. I felt that these could be treated with rubber-band ligation. Double rubber bands placed onto the ligating device and then with an Allis clamp I held the internal hemorrhoid tissue and then applied the rubber-band ligated over the clamp. This ligated the internal hemorrhoid tissue well. Was done in identical fashion both the 7:00 and 10:00 hemorrhoids. I then irrigated out the anal canal sterile saline solution. Hemostasis was good. I then placed a Gelfoam covered in 1% lidocaine jelly. Placed into the anal canal. I then cleaned the area and then placed a perianal block consisting of 1% lidocaine mixed with 0.5% Marcaine with some epinephrine. Bilateral pudendal nerve blocks were also placed. There is then cleaned and then fluffed 4x4 gauze ABD pad and disposable underwear was used for final dressing. The patient tolerated the procedure well no complications. All sponges, needles, and instrument counts were correct at the end procedure. EBL was _30__cc. The patient was awakened
== END 2023-07-26 14:52 | disposition home or self-care (01) ==
PROVIDERS: PCP Nurse Practitioner Family; Visit Provider Surgery
PROC: (CPT 46255; principal; 2023-07-26 12:00)
DX: K64.2 Third degree hemorrhoids (principal); F17.210 Nicotine dependence, cigarettes, uncomplicated
CPT/HCPCS: 46255; 88304; A9270; J0690; J1100; J1885; J2250; J2405; J2704; J3010; J7120

== ENCOUNTER 2023-09-07 11:04 | Outpatient (CLI) | payer OTHER, SELFPAY ==
--- NOTE | ~2023-09-07 | XR_ITS ---
. EXAMINATION: XR chest 2V 09/07/2023 10:31 INDICATION: Shortness of breath and cough PROCEDURE: 2 view chest COMPARISON: Comparison to multiple prior studies sequentially, with oldest reviewed study dated 09/2010. FINDINGS: The lungs are clear. The lungs are hyperinflated which is consistent with, but not diagnost ic of chronic obstructive pulmonary disease. The cardiomediastinal silhouette is within normal limit s. There are no pleural effusions. There is no pneumothorax suspected. IMPRESSION: 1: NO ACUTE CARDIOPULMONARY DISEASE. Reviewed, dictated and finalized at location B.
--- NOTE | 2023-09-07 10:36 | ECG_ITS ---
Test Date: 2023-09-07 10:54:24 Measurements Intervals [place] Rate: 73 P: -47 VA: 110 QRS: 45 QRSD: 74 T: 42 QT: 370 QTc: 408 Interpretive Statements ECTOPIC ATRIAL RHYTHM WITH SHORT VA INTERVAL CANNOT R/O SEPTAL INFARCT, AGE INDETERMINATE ABNORMAL ECG No previous ECG available for comparison Electronically Signed On 09-07-2023 10:57:41 CDT by Esteban Francisco D.O.
[2023-09-07 11:23] LABS: Basophils Absolute Auto 0.1 K/mm3 (0.0-0.1); Eosinophils Absolute Auto 0.1 K/mm3 (0-0.3); Eosinophils Percent Auto 1.4 % (0-4.4); Hematocrit 44.5 % (37.0-47.0); Hemoglobin 14.4 g/dL (12.0-15.0); Immature Granulocyte Absolute 0.02 K/mm3 (0.00-0.031); Immature Granulocyte Percent A 0.3 % (0-0.5); Lymphocytes Absolute Auto 2.05 K/mm3 (0.9-3.2); Lymphocytes Percent Auto 32.7 % (18.3-44.2); Mean Corpuscular HGB Conc 32.4 g/dl (32-36); Mean Corpuscular Volume 92.7 fl (80-100); Monocytes Absolute Auto 0.4 K/mm3 (0.1-0.6); Monocytes Percent Auto 6.4 % (2.6-8.5); Neutrophils Absolute Auto 3.6 K/mm3 (1.3-6.7); Neutrophils Percent Auto 58.2 % (45.5-73.1); Platelet Count Result 270 k/mm3 (150-375); Red Cell Distribution Width 12.6 % (11.5-14.5); White Blood Count 6.3 K/mm3 (4.5-10.0)
[2023-09-07 11:44] LABS: Alanine Aminotransferase 16 U/L (6-35); Albumin Level 4.8 g/dL (3.5-5.1); Alkaline Phosphatase 65 U/L (38-126); Anion Gap 8 mmol/L (4-12); Aspartate Amino Transferase 25 U/L (14-36); Bilirubin,Total 0.8 mg/dL (0.2-1.3); Blood Urea Nitrogen 11 mg/dL (7-17); Calcium 9.8 mg/dL (8.4-10.2); Carbon Dioxide 29 mmol/L (22-30); Chloride 103 mmol/L (98-107); Estimated Glomerular Filt Rate > 60; Glucose 100 mg/dL (65-110); Potassium 4.1 mmol/L (3.4-5.0); Sodium 140 mmol/L (137-145)
== END 2023-09-07 11:05 | disposition home or self-care (01) ==
PROVIDERS: PCP Nurse Practitioner Family; Visit Provider Nurse Practitioner Family
DX: R53.83 Other fatigue (principal); R94.31 Abnormal electrocardiogram [ECG] [EKG]
CPT/HCPCS: 36415; 71046; 80053; 84443; 85025; 93005

== ENCOUNTER 2023-09-29 13:06 | Outpatient (CLI) | payer OTHER, SELFPAY ==
--- NOTE | 2023-09-29 13:09 | ECHO_ITS ---
Patient Info Name: Geena Newton Age: 68 years : 1955 Gender: Female Ht: 65 in Wt: 140 lbs BSA: 1.71 m2 HR: 75 bpm BP: 154 / 91 mmHg Heart Rhythm: Sinus Rhythm Technical Quality: Good Exam Date: 09/29/2023 1:32 PM Exam Location: Echo Lab Patient Status: Outpatient Admit Date: 09/29/2023 Staff Ordering Physician: Concepcion Fuentes NP Cub Reporter: Jeff Jo RDCS Attending Provider: Concpecion Fuentes NP Exam Type: CA echo doppler color flow Study Info Indications - chest pain, unsp Complete two-dimensional, color flow and Doppler transthoracic echocardiogram is performed. Summary 1. Complete two-dimensional, color flow and Doppler transthoracic echocardiogram is performed. 2. Left ventricular chamber dimension is normal. 3. Left ventricular systolic function is normal, estimated at 60-65%. 4. The left ventricular diastolic function is normal. 5. E/e' 8 is minimally elevated. 6. There is trace aortic valve regurgitation. 7. There is trace mitral valve regurgitation. 8. There is trace tricuspid valve regurgitation. 9. No pulmonary hypertension, estimated pulmonary arterial systolic pressure is 25 mmHg. Left Ventricle E/e' 8 is minimally elevated. Left ventricular chamber dimension is normal. Left ventricular systolic function is normal, estimated at 60-65%. The left ventricular diastolic function is normal. Right Ventricle Right ventricular systolic function is normal and with normal TAPSE 2.9 cm. Right ventricular chamber dimension is normal. Left Atria Left atrial chamber dimension is normal. Right Atria Right atrial chamber dimension is normal. Aortic Valve The aortic valve is trileaflet. There is no aortic valve stenosis. There is trace aortic valve regurgitation. Pulmonic Valve There is no pulmonic regurgitation. Mitral Valve There is no mitral valve stenosis. There is trace mitral valve regurgitation. Tricuspid Valve There is trace tricuspid valve regurgitation. No pulmonary hypertension, estimated pulmonary arterial systolic pressure is 25 mmHg. Pericardium/Pleural There is no pericardial effusion. Inferior Vena Cava Normal inferior vena cava with >50% collapse upon inspiration consistent with normal right atrial pressure, 5 mmHg. Aorta The aortic root size at the sinus of Valsalva is normal. Left Ventricular Outflow Tract Name Value Normal LVOT 2D LVOT Diameter 1.7 cm LVOT Doppler LVOT Peak Gradient 4 mmHg LVOT Mean Gradient 2 mmHg LVOT VTI 20 cm LVOT VTI/AV VTI Ratio 0.9 LVOT Stroke Volume 49 ml LVOT CO 3.8 l/min LVOT CI 2.2 l/min/m2 Pulmonic Valve Name Value Normal PV Doppler PV Peak Gradient 2 mmHg Mitral Valve
== END 2023-09-29 13:07 | disposition home or self-care (01) ==
LOC: ANHCARD 13:07
PROVIDERS: PCP Nurse Practitioner Family; Visit Provider Nurse Practitioner Family
DX: R07.9 Chest pain, unspecified (principal); R06.02 Shortness of breath; R68.89 Other general symptoms and signs; R94.31 Abnormal electrocardiogram [ECG] [EKG]
CPT/HCPCS: 93306

== ENCOUNTER 2023-10-13 08:57 | Outpatient (CLI) | payer OTHER, SELFPAY ==
--- NOTE | 2023-10-13 09:02 | EST_ITS ---
Patient Info Name: Geena Denton Spencer Age: 68 years : 1955 Gender: Female Ht: 64 in Wt: 140 lbs BSA: 1.70 m2 HR: 82 bpm BP: 137 / 85 mmHg Heart Rhythm: Sinus Rhythm Exam Date: 10/13/2023 9:16 AM Exam Location: Echo Lab Patient Status: Outpatient Admit Date: 10/13/2023 Staff Ordering Physician: Concepcion Fuentes NP Attending Provider: Concepcion Fuentes NP Exercise Technologist: Nohelia Brown CT Exercise Physician: Esteban Francisco DO Exam Type: CA stress test treadmill Study Info Indications R06.02 - Shortness of breath R07.89 - Other chest pain A treadmill exercise stress test was performed. Summary 1. 1. Negative Chad exercise stress test for ischemic ST changes by ECG criteria. 2. 2. Reduced functional capacity, achieving 5.6 METs of workload. 3. 3. Appropriate HR response to exercise. 4. 4. Appropriate HR recovery at 1 minute post exercise. 5. 5. No imaging with stress testing. 6. 6. Patient informed of the above results. Protocol: Chad Stress ECG Details Stage: REST Duration (min): 0 min : 56 sec Speed (mph): 0.0 Grade (%): 0 HR (bpm): 85 SBP (mmHg): 137 DBP (mmHg): 85 METS: --- Stage: REST Duration (min): 1 min : 18 sec Speed (mph): 0.0 Grade (%): 0 HR (bpm): 81 SBP (mmHg): 137 DBP (mmHg): 85 METS: --- Stage: REST Duration (min): 4 min : 59 sec Speed (mph): 0.0 Grade (%): 0 HR (bpm): 84 SBP (mmHg): 137 DBP (mmHg): 85 METS: --- Stage: STAGE 1 Duration (min): 1 min : 0 sec Speed (mph): 1.7 Grade (%): 10 HR (bpm): 108 SBP (mmHg): 137 DBP (mmHg): 85 METS: --- Stage: STAGE 1 Duration (min): 2 min : 0 sec Speed (mph): 1.7 Grade (%): 10 HR (bpm): 123 SBP (mmHg): 137 DBP (mmHg): 85 METS: --- Stage: STAGE 1 Duration (min): 3 min : 0 sec Speed (mph): 1.7 Grade (%): 10 HR (bpm): 136 SBP (mmHg): 150 DBP (mmHg): 93 METS: --- Stage: STAGE 2 Duration (min): 0 min : 30 sec Speed (mph): 2.5 Grade (%): 12 HR (bpm): 144 SBP (mmHg): 150 DBP (mmHg): 93 METS: --- Stage: RECOVERY Duration (min): 0 min : 29 sec Speed (mph): 0.0 Grade (%): 0 HR (bpm): 141 SBP (mmHg): 150 DBP (mmHg): 93 METS: --- Stage: RECOVERY Duration (min): 1 min : 29 sec Speed (mph): 0.0 Grade (%): 0 HR (bpm): 112 SBP (mmHg): 150 DBP (mmHg): 93 METS: --- Stage: RECOVERY Duration (min): 2 min : 29 sec Speed (mph): 0.0 Grade (%): 0 HR (bpm): 104 SBP (mmHg): 150 DBP (mmHg): 93 METS: --- Stage: RECOVERY Duration (min): 3 min : 29 sec Speed (mph): 0.0 Grade (%): 0 HR (bpm): --- SBP (mmHg): 173 DBP (mmHg): 84 METS: --- Stage: RECOVERY Duration (min): 4 min : 29 sec Speed (mph): 0.0 Grade (%): 0 HR (bpm): --- SBP (mmHg): 173 DBP (mmHg): 84 METS: --- Stage: RECOVERY Duration (min): 5 min : 11 sec Speed (mph): 0.0 Grade (%): 0 HR (bpm): --- SBP (m
== END 2023-10-13 08:58 | disposition home or self-care (01) ==
LOC: ANHCARD 08:58
PROVIDERS: PCP Nurse Practitioner Family; Visit Provider Nurse Practitioner Family
DX: R68.89 Other general symptoms and signs (principal); R94.31 Abnormal electrocardiogram [ECG] [EKG]
CPT/HCPCS: 93017

== ENCOUNTER 2024-05-11 07:44 | Outpatient (CLI) | payer BC, SELFPAY ==
--- NOTE | ~2024-05-11 | MR_ITS ---
EXAMINATION: MR lumbar spine wo con DATE: 05/11/2024 08:22 INDICATION: Low back pain, unspecified. TECHNIQUE: Magnetic resonance imaging (MRI) of the lumbar spine was performed without intravenous con trast. Sequences included sagittal T2-weighted FSE, sagittal T2-weighted FS FSE, sagittal T1-weighted FSE, and axial T2-weighted FSE. COMPARISON: Lumbar spine MRI 10/10/2013 FINDINGS: There is 4 degrees levocurvature of lumbar spine. There are Schmorl's nodes at multiple lev els. There is mildly decreased disc height at L2-L3, L3-L4, and L4-L5. The distal spinal cord signal intensity is normal. The conus medullaris is at L1-L2. There are Tarlov's cysts at S2. The following disc levels are specifically discussed: L1-L2: The disc does not extend beyond the endplate margin. There is mild right facet joint osteoarth ritis. There is no neural foraminal stenosis. There is no central canal stenosis. L2-L3: The disc is bulging. There is mild bilateral facet joint osteoarthritis. There is mild bilater al neural foraminal stenosis. There is mild central canal stenosis. L3-L4: The disc is bulging. There is mild left facet joint osteoarthritis. There is mild bilateral ne ural foraminal stenosis. There is mild central canal stenosis. L4-L5: The disc is bulging and has an annular fissure. There is mild right and moderate left facet talita int osteoarthritis. There is mild bilateral neural foraminal stenosis. There is mild central canal st enosis. L5-S1: The disc is bulging and has an annular fissure. There is mild left facet joint osteoarthritis. There is mild bilateral neural foraminal stenosis. There is mild central canal stenosis. IMPRESSION: 1. Mild lumbar spondylosis, worsened from 10/10/2013. Reviewed, dictated and finalized at location A.
--- OUTSIDE RECORDS SUMMARY | 2024-05-11 07:51 | XMS_ITS | Continuity of Care Document ---
Author Organization [facility] Address [address] [place] [address] Phone Care Team Providers Care It Manager Name Role Phone Jean OD, Mohan Unavailable Unavailable Advance Directives Directive Yes / No Effective Date File Name No Information Encounters Encounter Description Practice Location Reason(s) For Visit Diagnoses Date Provider Providers Copied on Encounter [facility], [address], [place], [place], [id number], [place] tel:[phone] [facility] No Information June- 4-200 2 Jean OD Mohan. [address] , [address], [place], [address], [place]. tel:[phone] Family History Family Member Type Diagnosis Age At Onset No Information Payers Payer name Insurance type Covered constitution party ID Authoriza tion(s) No Information Social History [...]
--- OUTSIDE RECORDS SUMMARY | 2024-05-11 07:51 | XMS_ITS | Clinical Summary ---
Author Organization [facility] Address [address] [place] [address] Care Team Providers Care Box Maker Name Role Phone Rinku Chisholm MD Primary Care Provider [phone] Source Comments [facility],non-owned Affiliates and Associated Physician Practices is amultiple site organization consisting of ambulatory clinics and hospital sitesin [place], [place], [place] and [place]. This disclosure is being madepursuant to the Care Everywhere program and may not contain all information available regarding this patient. Last updated 17.[facility] Allergies No known active allergies Medications * Be aware that medications may not be up to date on this document. Alwaysverify current medications with the patient. Medication Sig Dispensed Refills Start Date End Date Status predniSONE (DELTASONE) 20 MG tabletIndications:Jose Angel rgic contact dermatitis due to plants, except food Take 60 mg po daily x 5 days, then 40 mg po daily x 5 days, then 20 mg po daily x 5 days. 30 tablet 08/03/2018 Active Active Problems No known active problems Social History Tobacco Use Types Packs/Day Years Used Date Smoking Tobacco: Every Day Cigarettes Smokeless Tobacco: Never Sex and Gender Information Value Date Recorded Sex Assigned at Not on file Gender Identity Not on file Sexual Orientation Not on file Last Filed Vital Signs Vital Sign Reading Time Taken Comments Blood Pressure 134/76 08/03/2018 3:30 PM CDT Pulse 87 08/03/2018 3:30 PM CDT Temperature 37.5 C (99.5 F) 08/03/2018 3:30 PM CDT Respiratory Rate 15 08/03/2018 3:30 PM CDT Oxygen Saturation 96% 08/03/2018 3:30 PM CDT Inhaled Oxygen Concentration - - Weight 59 kg (130 lb) 08/03/2018 3:30 PM CDT Height 162.6 cm (5' 4 ) 08/03/2018 3:30 PM CDT Body Mass Index 22.31 08/03/2018 3:30 PM CDT Plan of Treatment Health Maintenance Due Date Last Done Comments BONE DENSITY TESTING 1955 COLOGUARD (AGES 45-75) - COL ON CA SCREENING 1955 COLON MONITORING 1955 COLONOSCOPY - COLON CA SCREENING 1955 CT COLONOGRAPHY - COLON CA SCREENING 1955 Colorectal Cancer Screening 1955 FIT - COLON CA SCREENING 1955 FLEX SIG - COLON CA SCREENING 1955 LIPID TESTING 1955 MAMMOGRAM 1955 HEPATITIS C SCREENING 03/21/1975 DTAP/TDAP/TD VACCINES (1 - Tdap) 1976 PNEUMOCOCCAL VACCINE 50+ (1 of 1 - PCV) 2007 ZOSTER VACCINE (1 of 2) 2007 COVID-19 VACCINE ( - 2023-2 5 season) 2023 INFLUENZA VACCINE (#1) 2023 DEPRESSION SCREENING 02/16/2024 Respiratory Syncytial Virus (RSV) Vaccine Pt: or over 60 yrs (1 - 1-dose 75+ series) 2032 HEPATITIS B VACCINE Aged Out No longe r eligible based on patient's age to complete this topic HIB VACCINE Aged Out No longer eligi ble based on patient's age to complete this topic HPV VACCINE Aged Out No longer eligi ble based on patient's age to complete this topic MENINGOCOCCAL (Group B) VACC INE SHARED DECISION-MAKING Aged Out No longer eligibl e based on patient's age to complete this topic MENINGOCOCCAL GROUPS A/C/Y/W VACCINE Aged Out No longer eligible b ased on patient's age to complete this topic Care Teams Box Maker Relationship Specialty Start Date End Date Rinku hCisholm MD [address] [place] [id number] PCP - General Internal Medicine 01/27/16
== END 2024-05-11 07:45 | disposition home or self-care (01) ==
PROVIDERS: PCP Nurse Practitioner Family; Visit Provider Nurse Practitioner Family
DX: M47.816 Spondylosis without myelopathy or radiculopathy, lumbar region (principal); M54.30 Sciatica, unspecified side; K62.9 Disease of anus and rectum, unspecified
CPT/HCPCS: 72148

== ENCOUNTER 2024-05-26 15:37 | Emergency (ER) | payer BC, SELFPAY ==
--- NOTE | ~2024-05-26 | XR_ITS ---
XR abdomen/kub 1V Ordering provider: Shelbie Stevens NP History: . L flank pain, L CVA tenderness . Comparison: None. FINDINGS: BOWEL: Nonobstructive bowel gas pattern. ORGANOMEGALY: None. SIGNIFICANT PATHOLOGIC CALCIFICATIONS: None. OTHER: No free air is seen under the diaphragm. IMPRESSION: NO ACUTE ABDOMINAL FINDINGS. No definite stones seen. Noncontrast CT is better for evaluation. Reviewed, dictated and finalized at location A.
--- OUTSIDE RECORDS SUMMARY | 2024-05-26 15:40 | XMS_ITS | Clinical Summary ---
Author Organization [facility] Address [address] [place] [address] Care Team Providers Care Biological Science Aide Name Role Phone Rinku Chisholm MD Primary Care Provider [phone] Source Comments [facility],non-owned Affiliates and Associated Physician Practices is amultiple site organization consisting of ambulatory clinics and hospital sitesin [place], [place], [place] and [place]. This disclosure is being madepursuant to the Care Everywhere program and may not contain all information available regarding this patient. Last updated 17.[facility] Allergies No known active allergies Medications * [...] VACCINE (1 of 2) 2007 COVID-19 VACCINE (1 - 2023-2 5 season) 2023 DEPRESSION SCREENING 02/16/2024 INFLUENZA VACCINE (Season Ended) 2024 Respiratory Syncytial Virus (RSV) Vaccine Pt: or [...] age to complete this topic Care Teams Biological Science Aide Relationship Specialty Start Date End Date Rinku Chisholm MD [address] [place] [id number] PCP - General Internal Medicine 01/27/16
--- OUTSIDE RECORDS SUMMARY | 2024-05-26 15:40 | XMS_ITS | Continuity of Care Document ---
Author Organization [facility] Address [address] [place] [address] Phone Care Team Providers Care Extractor Loader And Unloader Name Role Phone Jean OD, Mohan Unavailable Unavailable Advance Directives Directive Yes / No Effective Date File Name No Information Encounters Encounter Description Practice Location Reason(s) For Visit Diagnoses Date Provider Providers Copied on Encounter [facility], [address], [place], [place], [id number], [place] tel:[phone] [facility] No Information 4-200 2 Jean OD Mohan. [address] , [address], [place], [address], [place]. tel:[phone] Family History Family Member Type Diagnosis Age At Onset No Information Payers Payer name Insurance type Covered green party ID Authoriza tion(s) No Information Social [...]
--- OUTSIDE RECORDS SUMMARY | 2024-05-26 15:43 | XMS_ITS | Continuity of Care Document ---
Author Organization [facility] Address [address] [place] [address] Phone Care Team Providers Care Patient Services Specialist Name Role Phone Jean OD, Mohan Unavailable Unavailable Advance Directives Directive Yes / No Effective Date File Name No Information Encounters Encounter Description Practice Location Reason(s) For Visit Diagnoses Date Provider Providers Copied on Encounter [facility], [address], [place], [place], [id number], [place] tel:[phone] [facility] No Information 4-200 2 Jean OD Mohan. [address] , [address], [place], [address], [place]. tel:[phone] Family History Family Member Type Diagnosis Age At Onset No Information Payers Payer name Insurance type Covered alliance party ID Authoriza tion(s) No Information Social [...]
[2024-05-26 15:47] VITALS: BP 129/78; PULSE 79; RESP 16; TEMP 36.3; O2SAT 97
--- NOTE | 2024-05-26 15:53 | ED.FEMALEGU ---
HPI - Female Genitourinary General Chief complaint: Urogenital-Female Stated complaint: side pain Time Seen by Provider: 05/26/24 15:53 Source: patient Mode of arrival: ambulatory Limitations: no limitations History of Present Illness HPI Narrative: 69 yo F presents with c/o L side pain starting last night. Last week reports back and forth between dribbling urine and then normal stream. No dysuria, frequency, urgency, hx of kidney infections. Afebrile. No N/v. All systems reviewed and negative except as noted above. Related Data Home Medications ?Medication ?Instructions ?Recorded ?Confirmed ?Last Taken ?Type multivitamin 1 tablet PO DAILY 10/12/22 04/27/24 Unknown History Allergies Allergy/AdvReac Type Severity Reaction Status Date / Time codeine Allergy Unknown N/V, Verified 05/26/24 15:50 LORTAB [place] meperidine Allergy Unknown CAUSED Verified 05/26/24 15:50 RESP ARREST W/MOTHER,N/V SISTER Influenza Virus Vaccines AdvReac Mild Other Verified 05/26/24 16:31 Review of Systems Review of Systems: CONSTITUTIONAL: Denies fever, chills, or sweats. EYES: Denies visual changes, redness, or discharge. ENT: Denies rhinorrhea, congestion, sore throat, or otalgia. CARDIOVASCULAR: Denies chest pain, palpitations, or edema. RESPIRATORY: Denies cough or dyspnea. GASTROINTESTINAL: Denies abdominal pain, nausea, vomiting, or diarrhea. GENITOURINARY: Denies dysuria or hematuria. SKIN: Denies rash or itching. MUSCULOSKELETAL: Denies back pain, joint pain, or myalgia. Reports L side pain NEUROLOGIC: Denies headache, numbness, or weakness. PSYCHIATRIC: Denies anxiety or depression. All other systems reviewed are negative, except as documented in HPI. 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 Orestes Mcclain H/O: hysterectomy History of appendectomy Hx of cataract surgery Hx of neck surgery Family History Family History Father Patient's father is in good health Mother Family history of malignant neoplasm Patient's mother is , Onset Age: 64 Social History Social History Years smoked: 30 Smoking status: Current every day smoker Tobacco type: cigarettes (1-3 per day) Alcohol intake: current Drinks per week: 1 Alcohol use details: occasionally Substance use: never Substance use type: does not use Lack of Transportation: No Lack of Food: Never True Current Housing: I Have Housing Concerned About Future Housing: No Difficulty Paying Gas/Electric Bills: No Difficulty Paying for Meds: No Currently Unemployed: No Education: High School Diploma/GED Difficulty w/ Childcare or Family Care: No Living arrangements: alone Spiritual care concerns: No Comments At time of signature, agree with nursing past medical, surgical, social and family history. There is no relevant family history pertinent to the presenting complaint. Exam Narrative: GENERAL: This is a well-nourished, well-developed patient, in no apparent distress. HEAD: normocephalic, atraumatic. EYES: PERRL. Sclera clear/white. Vision is grossly intact. EARS: External ears normal NOSE: External nose normal NECK: Neck supple, non-tender without lymphadenopathy, masses or thyromegaly. CARDIOVASCULAR: Regular rate and rhythm without murmurs, gallops, or rubs. RESPIRATORY: Clear to auscultation. Breath sounds equal bilaterally. No wheezes, rales, or rhonchi. GASTROINTESTINAL: Abdomen soft, non-tender, nondistended. Bowel sounds are active. No hepato-splenomegaly, or palpable masses. No guarding. SKIN: warm, Dry, intact with no suspicious lesions or rash, good texture and turgor. NEURO: awake, alert, and oriented to person, place and time. There were no obvious focal neurologic abnormalities. EXTREMITIES: No joint tenderness, effusion, or edema noted. BACK: Nontender without deformity. L sided CVA tenderness. Course Course Level of Care: Express Care Visit Vital Signs Vital signs: Vital Signs Temperature 36.3 C L 05/26/24 15:47 Pulse Rate 79 05/26/24 15:47 Respiratory Rate 16 05/26/24 15:47 Blood Pressure 129/78 05/26/24 15:47 Pulse Oximetry 97 05/26/24 15:47 Oxygen Delivery Room Air 05/26/24 15:47 Temperature 36.3 C L 05/26/24 15:47 Pulse Rate 79 05/26/24 15:47 Respiratory Rate 16 05/26/24 15:47 Blood Pressure 129/78 05/26/24 15:47 Pulse Oximetry 97 05/26/24 15:47 Oxygen Delivery Room Air 05/26/24 15:47 Reviewed MDM - Female Genitourinary MDM Narrative Medical decision making narrative: urinalysis positive for leukocytes, Trace blood. Urine culture ordered. KUB negative for kidney stone. Patient is well-appearing, nontoxic. Recommend she go to the ER for any worsening of symptoms. Will treat patient with Augmentin today. Please be advised this is a medical document. It is intended for ccoy-iu-katk communication. It is written in medical language and may contain unfamiliar abbreviations or verbiage. Medical documents are intended to carry relevant information, facts as evident, and the clinical opinion of the practitioner at the time of the encounter. This report may have been done utilizing a voice recognition system. Attempts have been made to correct errors. However, there may be uncorrected grammatical, spelling, and recognition errors present. The file time of this note does not necessarily represent the time of service. Lab Data Labs: Lab Results 05/26/24 Range/Units 15:54 POC Urine Color Yellow POC Urine Clarity Cloudy POC Urine pH 6.0 POC Ur Specif Mertens 1.020 POC Urine Protein Negative (Negative) POC Ur Glucose (UA) Negative (Negative) POC Urine Ketones Negative (Negative) POC Urine Blood Trace (Negative) POC Urine Nitrite Negative (Negative) POC Urine Bilirubin Negative (Negative) POC Urine Urobilinogen 0.2 POC U Leukocyte Esteras Trace (Negative) Imaging Data My impression: agree with radiologist Radiologist's impression: XR abdomen/kub 1V Ordering provider: Shelbie Stevens NP History: . L flank pain, L CVA tenderness . Comparison: None. FINDINGS: BOWEL: Nonobstructive bowel gas pattern. ORGANOMEGALY: None. SIGNIFICANT PATHOLOGIC CALCIFICATIONS: None. OTHER: No free air is seen under the diaphragm. IMPRESSION: NO ACUTE ABDOMINAL FINDINGS. No definite stones seen. Noncontrast CT is better for evaluation. Discharge Plan Discharge Clinical Impression: Urinary tract infection Qualifiers: Urinary tract infection type: site unspecified Hematuria presence: with hematuria Qualified Code(s): N39.0 - Urinary tract infection, site not specified Patient Disposition: Home Condition: Stable Instructions: Antibiotic Form, Urinary Tract Infection in Women (ED) Additional Instructions: Take antibiotic as prescribed until gone. May take [id number] azo as needed for urinary pain. Drink at least 64 oz of water a day. Follow up with your primary care physician if symptoms are not improving. if you have severe pain, vomiting, fever go to the ER. Patient Language: Romansh Prescriptions: New amoxicillin-pot clavulanate 875-125 mg tablet 1 tablet PO Q12H 7 Days Qty: 14 0RF No Action albuterol sulfate 90 mcg/actuation aerosol powdr breath activated 2 inh inhalation Q4-6H PRN (Reason: shortness of breath or wheezing) Qty: 1 5RF multivitamin Tablet 1 tablet PO DAILY Follow-up/Referrals: Concepcion Fuentes NP [Primary Care Provider] - Time of Disposition: 16:26
[2024-05-26 15:57] LABS: EDUAAPPEAR Cloudy; EDUABILI Negative (Negative); EDUABLOOD Trace (Negative); EDUACOLOR1 Yellow; EDUAGLUCOSE Negative (Negative); EDUAKETONE Negative (Negative); EDUALEUKO Trace (Negative); EDUANITRATE Negative (Negative); EDUAPROTEIN Negative (Negative); EDUAUROBILI 0.2
== END 2024-05-26 16:29 | disposition home or self-care (01) ==
PROVIDERS: Emergency Provider Nurse Practitioner Family; PCP Nurse Practitioner Family
DX: N39.0 Urinary tract infection, site not specified (principal); F17.210 Nicotine dependence, cigarettes, uncomplicated; E78.5 Hyperlipidemia, unspecified
CPT/HCPCS: 74018; 81003; 87086; 99213; G0463

== ENCOUNTER 2024-09-02 11:05 | Emergency (ER) | payer BC, SELFPAY ==
--- NOTE | 2024-09-02 11:06 | ED_ITS ---
HPI - Skin/Abscess/Foreign Bdy General Chief complaint: Urogenital-Female Stated complaint: spider bites/uti/bladder infection Time Seen by Provider: 09/02/24 11:06 Source: patient Mode of arrival: ambulatory Limitations: no limitations History of Present Illness HPI narrative: Karen is a 69-year-old female patient presenting to the today possible spider bite to her left side and left inner thigh that she 1st noticed yesterday. Is also concerned about a possible UTI. States her urine has been dark and she has been having some pain in the left side. No pain, frequency, or urgency with urination. No concern for STIs. She reports no known fevers, chills, body aches. Is concerned about a brown recluse bite. Related Data Home Medications ?Medication ?Instructions ?Recorded ?Confirmed ?Last Taken ?Type multivitamin 1 tablet PO DAILY 10/12/22 04/27/24 Unknown History Allergies Allergy/AdvReac Type Severity Reaction Status Date / Time codeine AdvReac Mild Nausea and Verified 09/02/24 11:19 Vomiting Influenza Virus Vaccines AdvReac Mild Other Verified 09/02/24 11:19 meperidine AdvReac Unknown CAUSED Verified 09/02/24 11:19 RESP ARREST W/MOTHER,N/V SISTER Review of Systems Review of Systems: Pertinent positives per HPI. Patient denies any fever, chills, rash, headache, visual changes, dizziness, cough, runny nose, sore throat, shortness of breath, chest pain, palpitations, nausea, vomiting, diarrhea, constipation, abdominal pain. 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 Orestes Mcclain H/O: hysterectomy History of appendectomy Hx of cataract surgery Hx of neck surgery Family History Family History Father Patient's father is in good health Mother Family history of malignant neoplasm Patient's mother is , Onset Age: 64 Social History Social History Years smoked: 30 Smoking status: Current every day smoker Tobacco type: cigarettes (1-3 per day) Alcohol intake: current Drinks per week: 1 Alcohol use details: occasionally Substance use: never Substance use type: does not use Lack of Transportation: No Lack of Food: Never True Current Housing: I Have Housing Concerned About Future Housing: No Difficulty Paying Gas/Electric Bills: No Difficulty Paying for Meds: No Currently Unemployed: No Education: High School Diploma/GED Difficulty w/ Childcare or Family Care: No Living arrangements: alone Spiritual care concerns: No Comments At the time of my signature, I reviewed and agree with the nursing past medical, surgical, social, and family history. There is no relevant family history pertinent to the patient complaint. Exam Narrative: General: Well-developed, well nourished, in no apparent distress. Head: Normocephalic, atraumatic. Cardio: Regular rate and rhythm, s1 and s2 normal, no murmur appreciated. Resp: Clear to auscultation bilaterally, no rhonchi, rales, wheezing or rubs. Abdomen: Soft, pliable, bowel sounds present in all quadrants, non-tender to palpation, no organomegly, no CVAT tenderness. Integumentary: [place], warm, and dry, intact without lesion, insect bites to the left all chest wall and the left medial thigh with redness, mild erythema, and induration measuring 1.5 cm with streaking noted to the left thigh bite. Course Course Emergency Course: Portions of this record may have been created with voice recognition software. Level of Care: Express Care Visit Vital Signs Vital signs: Vital Signs Temperature 36.9 C 09/02/24 11:16 Pulse Rate 91 09/02/24 11:16 Respiratory Rate 18 09/02/24 11:16 Blood Pressure 134/100 H 09/02/24 11:16 Pulse Oximetry 97 09/02/24 11:16 Oxygen Delivery Room Air 09/02/24 11:16 Temperature 36.9 C 09/02/24 11:16 Pulse Rate 91 09/02/24 11:16 Respiratory Rate 18 09/02/24 11:16 Blood Pressure 134/100 H 09/02/24 11:16 Pulse Oximetry 97 09/02/24 11:16 Oxygen Delivery Room Air 09/02/24 11:16 Vital signs reviewed MDM - Skin/Abscess/Foreign Bdy MDM Narrative Medical decision making narrative: At the time of visit patient is resting comfortably on the exam table. Patient appears to be nontoxic. Patient comes in concern for primary glue spider bites to the left chest wall and the left medial thigh. Has some redness and streaking to the left medial thigh. Areas are measuring 1.5 cm in induration and are slightly tender to palpation. If patient has not had any fevers. Patient also concerned about a possible UTI. States her urine is dark but not complaining of any burning, frequency, or urgency. Will order urine dip. Abdominal exam negative Labs: Urinalysis negative for any sign of infection, blood, or protein. Plan: I suspect patient has infected insect bite to the left lateral chest and the left medial groin. Prescription for Bactrim was sent to the pharmacy. Supportive measures were discussed with the patient and they voiced understanding discharge instructions and agrees to treatment plan. Return precautions reviewed Differential Diagnosis Differential diagnosis: Likely abscess of skin or subcutaneous tissue, viral exanthem, dermatophytosis, urticaria, herpes zoster, allergic reaction to drug, cellulitis, eczema, insect bites, impetigo, contact dermatitis and other (UTI) Lab Data Labs: Lab Results 09/02/24 Range/Units 11:22 POC Urine Color Yellow POC Urine Clarity Clear POC Urine pH 7.5 POC Ur Specif Marshall 1.020 POC Urine Protein Negative (Negative) POC Ur Glucose (UA) Negative (Negative) POC Urine Ketones Negative (Negative) POC Urine Blood Negative (Negative) POC Urine Nitrite Negative (Negative) POC Urine Bilirubin Negative (Negative) POC Urine Urobilinogen 0.2 POC U Leukocyte Esteras Negative (Negative) Discharge Plan Discharge Clinical Impression: Infected insect bite Qualifiers: Encounter type: initial encounter Qualified Code(s): W57.XXXA - Bitten or stung by nonvenomous insect and other nonvenomous arthropods, initial encounter Patient Disposition: Home Condition: Stable Instructions: Antibiotic Form, Insect Bite or Sting (ED) Additional Instructions: Urine dip is negative for any sign of blood, infection, or protein. Keep area clean and dry Take Bactrim as prescribed Watch for signs and symptoms of infection-fever, increase in redness, streaking, swelling, purulent discharge, or increase in pain. Follow up with your PCP in 3-5 days for wound check Patient Language: Portuguese Prescriptions: New sulfamethoxazole-trimethoprim [Bactrim DS] 800-160 mg tablet 1 tablet PO Q12H 7 Days Qty: 14 0RF No Action multivitamin Tablet 1 tablet PO DAILY Follow-up/Referrals: Concepcion Fuentes NP [Primary Care Provider] - Time of Disposition: 11:34 Quality NIHSS Nursing Documentation ED NIHSS nursing documentation: reviewed/agree
--- OUTSIDE RECORDS SUMMARY | 2024-09-02 11:08 | XMS_ITS | Encounter Summary ---
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 She is going to come in sometime next week and ask for me so that I can give her the information about the procedure. * Telephone Encounter - Regla Guardado - 08/31/2024 2:40 PM CDT Patient called and said that we referred her to Dr. Hernandez for pain from the Tailbone to the Rectal area and he does not treat this. She is asking if we can refer her to another doctor that deals with that because she is at a loss as to what type of doctor to call. She said the injections that we gave her does not help. documented in this encounter Plan of Treatment Not on file documented as of this encounter Visit Diagnoses Not on filedocumented in this encounter Care Teams Turbine Attendant Relationship Specialty Start Date End Date Concepcion Fuentes NP [address] [address] PCP - General Family Medicine 05/19/24 documented as of this encounter
--- OUTSIDE RECORDS SUMMARY | 2024-09-02 11:08 | XMS_ITS | Referral Summary ---
Author Organization [place] [id number] Address [address] [place] [address] Care Team Providers Care Sweeper Driver Name Role Phone Concepcion Fuentes JEANNETTE Primary Care Provider Encounters Date Type Department Care Team Description 08/31/2024 Telephone [facility] [address] [place] [phone] Regla Guardado 08/22/2024 Telephone [facility] [address] [place] [phone] Sawyer Myers 07/20/2024 Telephone [facility] [address] [place] [phone] Regla Guardado 07/18/2024 6:51 AM CDT - 07/18/2024 11:59 PM CDT Hospital Encounter [facility] [address] [place] [phone] Geovanna Ramos NP Coccygodynia (Primary Dx) Discharge Disposition: Discharge to home or self care 06/20/2024 Telephone [facility] [address] [place] [phone] Vanessa Mary 06/14/2024 7:14 AM CDT - 06/14/2024 11:59 PM CDT Hospital Encounter [facility] [address] [place] [phone] Zoltan Mobley MD Coccygodynia [M53.3] (Primary Dx); Sacral pain Discharge Disposition: Discharge to home or self care 06/06/2024 7:00 AM CDT - 06/06/2024 11:59 PM CDT Hospital Encounter [facility] [address] Zoltan Mobley MD Sacral pain (Primary Dx); Coccygodynia Discharge Disposition: Discharge to home or self care from Last 3 Months Allergies No known active allergies Medications diazePAM (VALIUM) 10 mg tablet Take one tablet 45 minutes prior to procedure time. 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 Gender Identity Not on file Sexual Orientation Not on file Last Filed Vital Signs Vital Sign Reading Time Taken Comments Blood Pressure 135/82 07/18/2024 7:03 AM CDT Pulse 79 07/18/2024 7:03 AM CDT Temperature 36.7 C (98 F) 06/14/2024 7:27 AM CDT Respiratory Rate 16 07/18/2024 7:03 AM CDT Oxygen Saturation 97% 07/18/2024 7:03 AM CDT Inhaled Oxygen Concentration - - Weight 67.9 kg (149 lb 12.8 oz) 06/06/2024 7:43 AM CDT Height 162.6 cm (5' 4) 06/06/2024 7:43 AM CDT Body Mass Index 25.71 06/06/2024 7:43 AM CDT Plan of Treatment Not on file Procedures Procedure Name Priority Date/Time Associated Diagnosis Comments PAIN MGMT IMAGING OTHER NERVE BLOCK Schedule Routine, Read Routine (OP Routine) 06/14/2024 7:41 AM CDT Sacral pain from Last 3 Months Results * Imaging OTHER Nerve Block (94985) (06/14/2024 7:41 AM CDT) Narrative [facility] - 06/14/2024 7:42 AM CDT The images from this study are not interpreted by Radiology. Please refer to the physician's procedure / OR operative note. Zoltan Mobley MD IMG PAIN MGMT PROCEDU RES Final Result [facility] from Last 3 Months Insurance [employer] [place] [employer] [place] Care Teams Sweeper Driver Relationship Specialty Start Date End Date Concepcion Fuentes NP [address] [address] PCP - General Family Medicine 05/19/24
--- OUTSIDE RECORDS SUMMARY | 2024-09-02 11:08 | XMS_ITS | Clinical Summary ---
Author Organization [facility] Address [address] [facility] [place] [address] Care Team Providers Care Facility Security Officer Name Role Phone Rinku Chisholm MD Primary Care Provider [phone] Source Comments [facility],non-owned Affiliates and Associated Physician Practices is amultiple site organization consisting of ambulatory clinics and hospital sitesin [place], [place], [place] and [place]. This disclosure is being madepursuant to the Care Everywhere program and may not contain all information available regarding this patient. Last updated 17.[facility] Allergies No known active allergies Medications * Be aware that medications may not be up to date on this document. Alwaysverify current medications with the patient. predniSONE (DELTASONE) 20 MG tabletIndication s:Allergic contact dermatitis due to plants, except food Take 60 mg po daily x 5 days, then 40 mg po daily x 5 days, then 20 mg po daily x 5 days. 30 tablet 08/03/2018 Active Active Problems No known active problems Social History Tobacco Use Types Packs/Day Years Used Date Smoking Tobacco: Every Day Cigarettes Smokeless Tobacco: Never Comments No Sex and Gender Information Value Date Recorded Sex Assigned at Not on file Legal Sex Female 5:50 PM CDT Gender Identity Not on file Sexual Orientation [...] 3:30 PM CDT Height 162.6 cm (5' 4) 08/03/2018 3:30 PM CDT Body Mass Index [...] season) 2023 DEPRESSION SCREENING 02/16/2024 INFLUENZA VACCINE (#1) 2024 Respiratory Syncytial Virus (RSV) Vaccine Pt: [...] on patient's age to complete this topic Insurance [facility] Care Teams Facility Security Officer Relationship Specialty Start Date End Date Rinku Chisholm MD [address] [place] [id number] PCP - General Internal Medicine 01/27/16
--- OUTSIDE RECORDS SUMMARY | 2024-09-02 11:08 | XMS_ITS | Clinical Summary ---
Author Organization [place] [id number] Address [address] [place] [address] Care Team Providers Care Algologist Name Role Phone Concepcion Fuentes JEANNETTE Primary Care Provider [phone] Allergies No known active allergies Medications diazePAM (VALIUM) 10 mg tablet Take one tablet 45 minutes prior to procedure time. Do not drive - must have driver engineer. 1 tablet Active Additional Information Patient not taking.Reported on 07/18/2024 Active Problems Problem Noted Date Diagnosed Date Coccygodynia 06/06/2024 Degeneration of intervertebral disc of lumbosacr al region 11/26/2014 Arthralgia of hip 11/07/2014 Lumbago 11/07/2014 Encounters Date Type Department Care Team Description 08/31/2024 Telephone [facility] [address] [place] [phone] Regla Guardado 08/22/2024 Telephone [facility] [address] [place] [phone] Sawyer Myers 07/20/2024 Telephone [facility] [address] [place] [phone] Regla Guardado 07/18/2024 6:51 AM CDT - 07/18/2024 11:59 PM CDT Hospital Encounter [facility] [address] [place] [phone] Geovanna Ramos NP Coccygodynia (Primary Dx) Discharge Disposition: Discharge to home or self care 06/20/2024 Telephone [facility] [address] [place] [phone] Vanessa Mary 06/14/2024 7:14 AM CDT - 06/14/2024 11:59 PM CDT Hospital Encounter [facility] [address] [place] [address] Zoltan Mobley MD Coccygodynia [M53.3] (Primary Dx); Sacral pain Discharge Disposition: Discharge to home or self care 06/06/2024 7:00 AM CDT - 06/06/2024 11:59 PM CDT Hospital Encounter [facility] [address] [place] [phone] Zoltan Mobley MD Sacral pain (Primary Dx); Coccygodynia Discharge Disposition: Discharge to home or self care from Last 3 Months Surgical History Surgery Date Site/Laterality Comments EPIDURAL INJECTION LUMBOSACRAL 12/03/2014 N/A Social History Tobacco Use Types Packs/Day Years Used Date Smoking Tobacco: Some Days Cigarettes Tobacco Cessation:Ready to Q uit: Not Asked; Counseling Given: Not Answered Comments Unknown Sex and Gender Information Value Date Recorded Sex Assigned at Not on file 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 Gender Identity Not on file Sexual Orientation Not on file Obstetrics History Last Filed Vital Signs Vital Sign Reading [...] 06/06/2024 7:43 AM CDT Plan of Treatment Health Maintenance Due Date Last Done Comments Breast Cancer Screening-Mammogram 1957 Colon Cancer Screening-Colonoscopy 1957 Depression Screening 1957 Hepatitis C Screening 1957 Osteoporosis Screening-Bone Density Scan 1957 DTaP/Tdap/Td Vaccine (1 - Tdap) 1968 Hepatitis B Screening 1975 Pneumococcal vaccine 65+ (1 of 2 - PCV) 1976 Zoster Vaccine (1 of 2) 2007 Well Visit 65+ 2022 Influenza Vaccine (#1) 2024 Fall Risk Assessment 07/18/2025 07/18/2024 Procedures Procedure Name Priority Date/Time Associated Diagnosis Comments PAIN MGMT IMAGING OTHER NERVE BLOCK Schedule Routine, Read Routine (OP Routine) 06/14/2024 7:41 AM CDT Sacral pain from Last 3 Months Results * Imaging OTHER Nerve Block (26307) (06/14/2024 7:41 AM CDT) Narrative RAD[facility] - 06/14/2024 7:42 AM CDT The images from this study are not interpreted by Radiology. Please refer to the physician's procedure / OR operative note. us Zoltan Mobley MD IMG PAIN MGMT PROCEDU RES Final Result RAD_[facility] from Last 3 Months Insurance [id number] [facility] Care Teams Algologist Relationship Specialty Start Date End Date Concepcion Fuentes NP [address] [address] PCP - General Family Medicine 05/19/24
--- OUTSIDE RECORDS SUMMARY | 2024-09-02 11:08 | XMS_ITS | Continuity of Care Document ---
Author Organization [facility] Address [address] [facility] [address] [place] [address] Phone Care Team Providers Care Partition Setter Name Role Phone Jean OD, Mohan Unavailable Unavailable Advance Directives Directive Yes / No Effective Date File Name No Information Encounters Encounter Description Practice Location Reason(s) For Visit Diagnoses Date Provider Providers Copied on Encounter [facility], [address], [place], [place], [id number], [place] tel:[phone] [facility] No Information June- 4-200 2 Jean OD Mohan. [address] , [address], [place], [address], [place]. tel:[phone] Family History Family Member Type Diagnosis Age [...]
--- OUTSIDE RECORDS SUMMARY | 2024-09-02 11:09 | XMS_ITS | Continuity of Care Document ---
Author Organization [facility] Address [address] [facility] [address] [place] [address] Phone Care Team Providers Care Stock Puller Name Role Phone Jean OD, Mohan Unavailable Unavailable Advance Directives Directive Yes / No Effective Date File Name No Information Encounters Encounter Description Practice Location Reason(s) For Visit Diagnoses Date Provider Providers Copied on Encounter [facility], [address], [place], [place], [id number], [place] tel:[phone] [facility] No Information June- 4-200 2 Jean OD Mohan. [address] , [address], [place], [address], [place]. tel:[phone] Family History Family Member Type Diagnosis Age [...]
[2024-09-02 11:16] VITALS: BP 134/100; PULSE 91; RESP 18; TEMP 36.9; O2SAT 97
[2024-09-02 11:29] LABS: EDUAAPPEAR Clear; EDUABILI Negative (Negative); EDUABLOOD Negative (Negative); EDUACOLOR1 Yellow; EDUAGLUCOSE Negative (Negative); EDUAKETONE Negative (Negative); EDUALEUKO Negative (Negative); EDUANITRATE Negative (Negative); EDUAPH 7.5; EDUAPROTEIN Negative (Negative); EDUASPGRAVITY 1.020; EDUAUROBILI 0.2
[2024-09-02 11:38] VITALS: BP 144/82
== END 2024-09-02 11:38 | disposition home or self-care (01) ==
PROVIDERS: Emergency Provider Nurse Practitioner Family; PCP Nurse Practitioner Family
DX: T63.301A Toxic effect of unspecified spider venom, accidental (unintentional), initial encounter (principal); E78.5 Hyperlipidemia, unspecified; F17.210 Nicotine dependence, cigarettes, uncomplicated
CPT/HCPCS: 81003; 99213; G0463

== ENCOUNTER → 2024-10-25 09:05 | Outpatient (CLI) | payer BC, SELFPAY ==
--- OUTSIDE RECORDS SUMMARY | 2001-06-28 10:45 | XMS_ITS | Continuity of Care Document ---
Author Organization [facility] Address [address] [place] [address] Phone Care Team Providers Care Slab Installer Name Role Phone Jean OD, Mohan Unavailable Unavailable Advance Directives Directive Yes / No Effective Date File Name No Information Encounters Encounter Description Practice Location Reason(s) For Visit Diagnoses Date Provider Providers Copied on Encounter [facility], [address], [place], [place], [id number], [place] tel:[phone] [facility] No Information 4-200 2 Jean OD Mohan. [address] , [address], [place], [address], [place]. tel:[phone] Family History Family Member Type Diagnosis Age At Onset No Information Payers Payer name Insurance type Covered republican ID Authoriza tion(s) No Information Social History Type Description Quantity Date Captured Comments Sex Female Smoking Status No Information Chief Complaint And Reason For Visit No Information Reason For Referral Reason For Referral No Information History Of Present Illness Encounter Date Complaint History Of Prese nt Illness No Information Functional Status Date Functional Assessmen t No Information Instructions Date Instruction Additional Infor mation No Information Assessments Type Assessment Date No Information Patient Care Teams Name Effective Dates (start - stop) Status Members No Information
--- NOTE | ~2024-10-25 | XR_ITS ---
EXAMINATION: XR sacrum coccyx min 2V, 10/25/2024 9:35 CDT HISTORY: M53.3 - Sacrococcygeal disorders, not elsewhere classified COMPARISON: No comparisons available. Findings: No acute fracture or malalignment. There is sclerosis noted of the left sacroiliac joint, no bridging osteophyte formation or erosions identified. Soft tissues unremarkable. Impression: No acute fracture or malalignment. Reviewed, dictated and finalized at location A. Impression: No acute fracture or malalignment.
--- OUTSIDE RECORDS SUMMARY | 2024-10-25 09:45 | XMS_ITS | Clinical Summary ---
Author Organization [place] [id number] [facility] [place] Address [address] [place] [address] Care Team Providers Care Bindery Operator Name Role Phone Concepcion Fuentes JEANNETTE Primary Care Provider [phone] Allergies No known active allergies Medications diazePAM (VALIUM) 10 mg tablet Take one tablet 45 minutes prior to procedure time. Do not drive - must have driver/guide. 1 tablet Active Additional Information Patient not taking.Reported on 07/18/2024 Active Problems Problem Noted Date Diagnosed Date Coccygodynia 06/06/2024 Degeneration of intervertebral disc of lumbosacr al region 11/26/2014 Arthralgia of hip 11/07/2014 Lumbago 11/07/2014 Encounters Date Type Department Care Team Description 08/31/2024 Telephone [facility] [address] [place] [phone] Regla Guardado 08/22/2024 Telephone [facility] [address] [place] [phone] Sawyer Myers from Last 3 Months Surgical History Surgery Date Site/Laterality Comments EPIDURAL INJECTION LUMBOSACRAL 12/03/2014 N/A Social History Tobacco Use Types Packs/Day Years Used Date Smoking Tobacco: Some Days Cigarettes Tobacco Cessation:Ready to Q uit: Not Asked; Counseling Given: Not Answered Comments Unknown Sex and Gender Information Value Date Recorded Sex Assigned at Not on file 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
--- OUTSIDE RECORDS SUMMARY | 2024-10-25 09:45 | XMS_ITS | Clinical Summary ---
Author Organization [facility] [employer] Address [address] [place] [address] Care Team Providers Care Conference Center Coordinator Name Role Phone Rinku Chisholm MD Primary Care Provider [phone] Source Comments [facility] [employer],non-owned Affiliates and Associated Physician Practices is amultiple site organization consisting of ambulatory clinics and hospital sitesin [place], [place], [place] and [place]. This disclosure is being madepursuant to the Care Everywhere program and may not contain all information available regarding this patient. Last updated 17.[facility] [employer] Allergies No known active allergies Medications * [...] 2007 ZOSTER VACCINE (1 of 2) 2007 DEPRESSION SCREENING 02/16/2024 COVID-19 VACCINE (1 - 2023-2 5 season) 2024 INFLUENZA VACCINE (#1) 2024 Respiratory Syncytial Virus [...] patient's age to complete this topic Insurance [facility] Care Teams Conference Center Coordinator Relationship Specialty Start Date End Date Rinku Chisholm MD [address] [place] [address] PCP - General Internal Medicine 01/27/16
== END ==
LOC: EXPTRAD 09:07
PROVIDERS: PCP Nurse Practitioner Family; Visit Provider Nurse Practitioner Family
DX: M53.3 Sacrococcygeal disorders, not elsewhere classified (principal)
CPT/HCPCS: 72220